=== PATIENT | female | born 1965 | race American Indian/Alaskan Native ===

== ENCOUNTER 2018-06-21 11:02 | Inpatient (IN) | payer SELFPAY ==
[2018-06-21] MEDS ORDERED: MORPHINE IV ONE ×3 (11:43→17:38)
[2018-06-21] MEDS ORDERED: DECADRON IV ONE (11:43)
[2018-06-21] MEDS ORDERED: TORADOL IV ONE (11:43)
[2018-06-21] MEDS ORDERED: ZOFRAN IV ONE (11:43)
--- NOTE | 2018-06-21 11:49 | Emergency Department Report ---
Addendum entered and electronically signed by DEMETRIUS SHIELDS, [facility] 06/21/18 23:32: Consulted Gastroenterology, Dr. Vasquez. Agree with admission for pain control and MRCP in the morning. Addendum entered and electronically signed by DEMETRIUS SHIELDS, [facility] 06/21/18 22:33: Consulted Dr. Swain, agreed to admit to hospitalist group for pain control. Addendum entered and electronically signed by DEMETRIUS SHIELDS, [facility] 06/21/18 20:32: PROCEDURE: CT chest with contrast. TECHNIQUE: Computerized axial tomography of the chest was performed during the IV injection of iodinated nonionic contrast. HISTORY: Chest pain. COMPARISON: No prior studies are available for comparison. TECHNICAL QUALITY: Satisfactory. FINDINGS: The technologist has included images of the abdomen and pelvis. There is a s eparate requisition for those studies. I will limit my review to the images of the chest. The trachea and central bronchi appear normal. The lungs are clear and well expanded. There are no pleural effusions. The thoracic aorta has a normal caliber without evidence of dissection. The bolus enhancement of the pulmonary arteries is less than ideal. There are no definite filling defects identified. There is no mediastinal adenopathy. The heart size is normal. The thoracic skeleton appears intact. IMPRESSION: Suboptimal study of the pulmonary arteries. No definite pulmonary emboli. No significant abnormality. PROCEDURE: CT abdomen and pelvis with contrast. TECHNIQUE: Computerized axial tomography of the abdomen and pelvis was performed after the IV injection of iodinated nonionic contrast. HISTORY: Epigastric abdominal pain. COMPARISON: No prior studies are available for comparison. FINDINGS: The lung bases are clear. There are no pleural effusions. The heart size is no rmal. The liver, pancreas and spleen appear normal. The gallbladder is present. There is moderate intrahepatic and extrahepatic biliary dilatation. There is dilatation of the proximal portion of the pancreatic duct. The findings suggest a distal common bile duct obstruction. There is no pancreatic head mass. An ERCP or MRCP may be of further diagnostic value. The adrenal glands are not enlarged. Both kidneys appear normal in size and configuration. The abdominal aorta has a normal caliber. There is no retroperitoneal adenopathy. The unopacified gastrointestinal tract is unremarkable. A normal appendix is visible. The bladder and adnexal regions are unremarkable. There is probably a large fibroid in the uterus. This is better evaluated by ultrasound scanning. The regional skeleton appears intact. IMPRESSION: Abnormal biliary dilatation as described. Probable large uterine leiomyoma. MDM Received patient from Dr. Chandana V. Pending CT of abdomen and chest. Radiographic dictated by radiologist report reviewed by myself. CT of abdomen abnormal biliary dilation. Consulted Dr. Olivares General Surgery. Order Ultrasound of abdomen. Admit to hospitalist for pain control. Repeat LFT tomorrow and possible MRCP/HIDA scan. Ordered Ultrasound of abdomen. Consulted hospitalist. Original Note: ED Back Pain/Injury HPI - General Chief Complaint: Back Pain/Injury Stated Complaint: LT SIDE PAIN/MID BACK/HANDS Time Seen by Provider: 06/21/18 11:35 Source: patient Limitations: No Limitations - History of Present Illness Initial Comments: Mrs. Hernández is a 53-year-old female with history of lumbar radiculopathy status post laminectomy in 2016 who presents with severe back pain radiating to the left leg. She has chronic pain which is normally controlled with tramadol naproxen gabapentin. However since Wednesday she's had severe pain. She started a new job 8 months ago. She denies any history of heavy lifting. However she stands during the majority of the day while she works. She denies bowel or bladder incontinence. She denies paralysis. She has chronic toe numbness. In 2016 she had emergency back surgery due to cauda equina impression. She is followed at the [facility]. She does not have any health insurance. She and her family were previously homeless. She now lives with her daughter. 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 Complaint: back pain -: Gradual, days(s) (3) Similar Symptoms Previously: Yes Severity: severe Severity scale (0 -10): 10 Quality: aching Consistency: constant Worsens With: movement Associated Symptoms: numbness (chronic toe numbness) - Related Data Previous Rx's Medication Instructions Recorded Last Taken Type Albuterol Sulfate [Ventolin HFA] 2 puff IH Q4H PRN #1 hfa.aer.ad 12/13/13 Unknown Rx Ciprofloxacin HCl [Cipro] 500 mg PO Q12H #14 tab 12/13/13 Unknown Rx Promethazine /Codeine 5 ml PO Q6H PRN #120 ml 12/13/13 Unknown Rx [Phenergan/Codeine 6.25-10 mg/5 ml] Diclofenac Sodium 75 mg PO BID #14 tablet. 07/03/14 Unknown Rx HYDROcodone/APAP 5-325 [[place] 1 each PO Q6HR PRN #15 tablet 07/03/14 Unknown Rx 5-325 mg TAB] LORazepam [Ativan] 0.5 mg PO Q6H PRN #15 tablet 07/03/14 Unknown Rx HYDROcodone/APAP 5-325 [[place] 1 each PO Q4HR PRN #15 tablet 01/04/15 Unknown Rx 5-325 mg TAB] Ibuprofen [Motrin 400 MG tab] 400 mg PO Q8H PRN #30 tablet 01/04/15 Unknown Rx Diazepam [Valium] 5 mg PO Q6H PRN #15 tablet 06/21/18 Unknown Rx oxyCODONE /ACETAMINOPHEN [Percocet 1 tab PO Q6HR PRN #15 tablet 06/21/18 Unknown Rx 5/325] Allergies Allergy/AdvReac Type Severity Reaction Status Date / Time Sulfa (Sulfonamide Allergy Anaphylaxis Verified 06/21/18 11:07 Antibiotics) cyclobenzaprine HCl AdvReac Headache Verified 06/21/18 11:07 [From Flexeril] ED Review of Systems ROS: Stated complaint: LT SIDE PAIN/MID BACK/HANDS Other details as noted in HPI Comment: All other systems reviewed and negative Constitutional: denies: fever, malaise Respiratory: denies: cough Cardiovascular: denies: chest pain ED Past Medical Hx - Past Medical History Hx Hypertension: Yes Additional medical history: Cholelithiasis - Surgical History Additional Surgical History: tubal ligation, lumbar laminectomry. LEFT THUMB SURGERY/TENDON REPAIR - Social History Smoking Status: Never Smoker Substance Use Type: None - Medications Home Medications: Home Medications Medication Instructions Recorded Confirmed Last Taken Type Albuterol Sulfate [Ventolin HFA] 2 puff IH Q4H PRN #1 hfa.aer.ad 12/13/13 Unknown Rx Ciprofloxacin HCl [Cipro] 500 mg PO Q12H #14 tab 12/13/13 Unknown Rx Promethazine /Codeine 5 ml PO Q6H PRN #120 ml 12/13/13 Unknown Rx [Phenergan/Codeine 6.25-10 mg/5 ml] Diclofenac Sodium 75 mg PO BID #14 tablet.dr 07/03/14 Unknown Rx HYDROcodone/APAP 5-325 [[place] 1 each PO Q6HR PRN #15 tablet 07/03/14 Unknown Rx 5-325 mg TAB] LORazepam [Ativan] 0.5 mg PO Q6H PRN #15 tablet 07/03/14 Unknown Rx HYDROcodone/APAP 5-325 [[place] 1 each PO Q4HR PRN #15 tablet 01/04/15 Unknown Rx 5-325 mg TAB] Ibuprofen [Motrin 400 MG tab] 400 mg PO Q8H PRN #30 tablet 01/04/15 Unknown Rx Diazepam [Valium] 5 mg PO Q6H PRN #15 tablet 06/21/18 Unknown Rx oxyCODONE /ACETAMINOPHEN [Percocet 1 tab PO Q6HR PRN #15 tablet 06/21/18 Unknown Rx 5/325] ED Physical Exam - General Limitations: No Limitations General appearance: alert, in no apparent distress, other (nontoxic but appears in severe pain) - Head Head exam: Present: atraumatic, normocephalic - Eye Eye exam: Present: normal appearance - ENT ENT exam: Present: mucous membranes moist - Neck Neck exam: Present: normal inspection, full ROM. Absent: tenderness, meningismus - Respiratory Respiratory exam: Present: normal lung sounds bilaterally. Absent: respiratory distress, wheezes, rales, stridor - Cardiovascular Cardiovascular Exam: Present: regular rate, normal rhythm, normal heart sounds. Absent: systolic murmur, diastolic murmur, rubs, gallop - GI/Abdominal GI/Abdominal exam: Present: soft, normal bowel sounds. Absent: distended, tenderness, guarding, rebound - Extremities Exam Extremities exam: Present: normal inspection, full ROM - Back Exam Back exam: Present: normal inspection, full ROM, muscle spasm. Absent: tenderness, CVA tenderness (R), CVA tenderness (L), paraspinal tenderness, vertebral tenderness - Neurological Exam Neurological exam: Present: alert, oriented X3 - Psychiatric Psychiatric exam: Present: normal affect, normal mood - Skin Skin exam: Present: warm, dry, intact, normal color. Absent: rash ED Course Vital Signs 06/21/18 06/21/18 06/21/18 11:07 12:00 12:04 Temperature 97.7 F Pulse Rate 75 Respiratory 16 19 19 Rate Blood Pressure 166/97 O2 Sat by Pulse 97 Oximetry - Reevaluation(s) Reevaluation #1: 06/21/18 12:50 After medications, back pain improve from to 3 out of 10. However now taiwo montero has burning chest pain and burping. I suspect dyspepsia and indigestion from medications. She does take naproxen daily. Reevaluation #2: 06/21/18 15:39 Reevaluated Ms. Flores, I suspect Toradol cause severe dyspepsia or heartburn. She requires imaging for gallbladder. She has a history of gallstones. I do not suspect [place] or dissection. However will obtain CT chest abdomen pelvis due to severe pain. Heart rate 65 beats a minute during Episode of Severe Pain. Back Pain Is Currently Not a Concern for the Patient ED Medical Decision Making - Lab Data Result diagrams: 06/21/18 13:59 06/21/18 13:59 Laboratory Results - last 24 hr 06/21/18 06/21/18 13:59 13:59 WBC 6.9 RBC 4.89 Hgb 13.3 Hct 41.4 MCV 85 MCH 27 L MCHC 32 RDW 15.0 Plt Count 242 Lymph % (Auto) 39.1 H Esmeralda % (Auto) 2.8 Eos % (Auto) 0.7 Baso % (Auto) 0.3 Lymph # 2.7 Esmeralda # 0.2 Eos # 0.0 Baso # 0.0 Seg Neutrophils % 57.1 Seg Neutrophils # 4.0 Sodium 142 Potassium 4.7 Chloride 104.6 Carbon Dioxide 28 Anion Gap 14 BUN 18 H Creatinine 0.8 Estimated GFR > 60 BUN/Creatinine Ratio 23 Glucose 129 H Calcium 9.4 Total Bilirubin 0.30 AST 48 H ALT 28 Alkaline Phosphatase 73 Troponin T < 0.010 Total Protein 6.9 Albumin 3.6 L Albumin/Globulin Ratio 1.1 Lipase 45 Vital Signs - 24 hr 06/21/18 06/21/18 06/21/18 11:07 12:00 12:04 Temperature 97.7 F Pulse Rate 75 Respiratory 16 19 19 Rate Blood Pressure 166/97 O2 Sat by Pulse 97 Oximetry - EKG Data -: EKG Interpreted by Nd EKG shows normal: sinus rhythm, axis, intervals, QRS complexes, ST-T waves Rate: normal - EKG Data Interpretation: no acute changes, normal EKG - Medical Decision Making Mrs. Hernández has a history of lumbar degenerative disc disease status post laminectomy for cauda equina compression 2015. She has acute on chronic pain today despite home medications tramadol and naproxen gabapentin. No signs or symptoms of cauda equina syndrome. She is neurovascularly intact. She has normal gait. Patient's pain was controlled with medication however she developed severe dyspepsia or heartburn after medication. She required viscous lidocaine, Maalox and IV Pepcid for relief. CT chest abdomen pelvis has been ordered. CT was performed due to patient's request. She was highly concerned for biliary colic. She has a history of cholelithiasis. I do not suspect [place]. I do not suspect acute inflammatory process. I do not suspect pulmonary embolism. Do not suspect esophageal rupture. If CT is negative for acute process as deemed by my colleague, she will be discharged home with prescription for Percocet and Valium. I referred her to several outside clinics. I have signed out Ms. Flores to my colleague for final disposition, awaiting completion of CT. Critical care attestation.: If time is entered above; I have spent that time in minutes in the direct care of this critically ill patient, excluding procedure time. ED Disposition Clinical Impression: Lumbar radiculopathy, chronic, Acute exacerbation of chronic low back pain, Heartburn Disposition: TO HOME OR SELFCARE Is pt being admited?: No Does the pt Need Aspirin: No Condition: Stable Instructions: Lumbar Radiculopathy (ED), Chronic Back Pain (ED) Prescriptions: Diazepam [Valium] 5 mg PO Q6H PRN #15 tablet PRN Reason: Muscle Spasm oxyCODONE /ACETAMINOPHEN [Percocet 5/325] 1 tab PO Q6HR PRN #15 tablet PRN Reason: Pain Referrals: [facility] [Outside] - 3-5 Days [facility] [Outside] - 3-5 Days [facility] [Outside] - 3-5 Days
[2018-06-21] MEDS ORDERED: PEPCID IV ONE (12:49)
[2018-06-21] MEDS ORDERED: ALUM-MAG HYDROX-SIMETH 200-200-20MG/5ML PO ONE (12:49)
[2018-06-21] MEDS ORDERED: LIDOCAINE VISCOUS 2% PO ONE (13:50)
[2018-06-21 14:32] LABS: Basophils % (Auto) 0.3 % (0.0-1.8); Eosinophils % (Auto) 0.7 % (0.0-4.3); Hematocrit 41.4 % (30.3-42.9); Hemoglobin 13.3 gm/dl (10.1-14.3); Lymphocytes # (Auto) 2.7 K/mm3 (1.2-5.4); Lymphocytes % (Auto) 39.1 % (13.4-35.0); Mean Corpuscular HGB Conc 32 % (30-34); Mean Corpuscular Volume 85 fl (79-97); Monocytes # (Auto) 0.2 K/mm3 (0.0-0.8); Monocytes % (Auto) 2.8 % (0.0-7.3); Platelet Count 242 K/mm3 (140-440); Red Blood Count 4.89 M/mm3 (3.65-5.03)
[2018-06-21 14:50] LABS: Alanine Aminotransferase 28 units/L (7-56); Albumin 3.6 g/dL (3.9-5); BUN/Creatinine Ratio 23; Blood Urea Nitrogen 18 mg/dL (7-17); Calcium 9.4 mg/dL (8.4-10.2); Hemolysis Index 8
--- NOTE | 2018-06-21 20:13 | Cat Scan Report ---
FINAL REPORT PROCEDURE: CT chest with contrast. TECHNIQUE: Computerized axial tomography of the chest was performed during the IV injection of iodin ated nonionic contrast. HISTORY: Chest pain. COMPARISON: No prior studies are available for comparison. TECHNICAL QUALITY: Satisfactory. FINDINGS: The technologist has included images of the abdomen and pelvis. There is a separate requisition for t hose studies. I will limit my review to the images of the chest. The trachea and central bronchi appear normal. The lungs are clear and well expanded. There are no pl eural effusions. The thoracic aorta has a normal caliber without evidence of dissection. The bolus en hancement of the pulmonary arteries is less than ideal. There are no definite filling defects identif ied. There is no mediastinal adenopathy. The heart size is normal. The thoracic skeleton appears inta ct. IMPRESSION: Suboptimal study of the pulmonary arteries. No definite pulmonary emboli. No significant abnormality.
--- NOTE | 2018-06-21 20:20 | Cat Scan Report ---
FINAL REPORT PROCEDURE: CT abdomen and pelvis with contrast. TECHNIQUE: Computerized axial tomography of the abdomen and pelvis was performed after the IV inject ion of iodinated nonionic contrast. HISTORY: Epigastric abdominal pain. COMPARISON: No prior studies are available for comparison. FINDINGS: The lung bases are clear. There are no pleural effusions. The heart size is normal. The liver, pancre as and spleen appear normal. The gallbladder is present. There is moderate intrahepatic and extrahepa tic biliary dilatation. There is dilatation of the proximal portion of the pancreatic duct. The findi ngs suggest a distal common bile duct obstruction. There is no pancreatic head mass. An ERCP or MRCP may be of further diagnostic value. The adrenal glands are not enlarged. Both kidneys appear normal i n size and configuration. The abdominal aorta has a normal caliber. There is no retroperitoneal adeno ben. The unopacified gastrointestinal tract is unremarkable. A normal appendix is visible. The blad christiano and adnexal regions are unremarkable. There is probably a large fibroid in the uterus. This is be tter evaluated by ultrasound scanning. The regional skeleton appears intact. IMPRESSION: Abnormal biliary dilatation as described. Probable large uterine leiomyoma.
--- NOTE | 2018-06-21 23:10 | Ultrasound Report ---
FINAL REPORT PROCEDURE: Abdominal ultrasound. TECHNIQUE: Real-time sonography in multiple planes of the abdomen was performed with image documenta [email or web address]. CPT 23145 HISTORY: Abnormal biliary dilatation. COMPARISON: CT abdomen and pelvis done earlier today. FINDINGS: Image quality is limited by the patient's obesity. The pancreas is inadequately visualized. The proxi mal portion of the abdominal aorta has a normal caliber. The liver has uniform echogenicity. There is moderate internal and external biliary dilatation. The common hepatic duct measures 7.3 millimeters. The portal vein is patent by color flow imaging. Both kidneys appear normal in size and have normal echogenicity. The spleen is grossly normal. The gallbladder wall thickness is increased measuring 4 m illimeters. There are numerous shadowing gallstones present. The technologist did not report whether the patient was tender over the gallbladder. IMPRESSION: Limited study due to the patient's obesity. Cholelithiasis. Moderately severe biliary dilatation.
[2018-06-22] MEDS ORDERED: TYLENOL PO PRN ×2 (00:14→02:38)
[2018-06-22] MEDS ORDERED: SODIUM CHLORIDE FLUSH SYRINGE 10 ML IV PRN ×2 (00:14→02:38)
--- NOTE | 2018-06-22 00:14 | History and Physical Report ---
<HECTOR MARCOS - Last Filed: 06/22/18 03:38> History of Present Illness Date of examination: 06/22/18 Date of admission: 06/22/18 Chief complaint: Abdominal pain, lower back pain History of present illness: Pt is 53-year-old BF with PMHx of lower back pain, obesity, chronic pain syndrome, arthritis, prior history of back surgery, who present to the ER with c/o lower back pain (lower lumbar area) radiating to the left leg. Pt states that she had emergent laminectomy in 2016 at [facility] for which she takes Gabapentin, Naproxen and Tramadol. Pt states that she started having back pain since Wednesday, but tonight the pain got worse, she also reports severe heartburn similar to pain that she has before, when she was told she has (gallstones) cholelithiasis. Pt c/o nausea, denies any vomiting, denies any recent injury at work, denies any headache, denies any dizziness, denies LOC, denies fever or chills, denies dysuria, denies CVA tenderness. Pt states that the pain improved after she was giving some morphine in the ER. Pt had a CT scan in the ER which shoes abnormal biliary dilation and probable large uterine leiomyoma. GI was consulted and pt is scheduled for possible MRCI in am. Past History Past Medical History: arthritis, other (obesity) Past Surgical History: Other Social history: no significant social history Family history: no significant family history Medications and Allergies Allergies Allergy/AdvReac Type Severity Reaction Status Date / Time Sulfa (Sulfonamide Allergy Anaphylaxis Verified 06/21/18 11:07 Antibiotics) cyclobenzaprine HCl AdvReac Headache Verified 06/21/18 11:07 [From Flexeril] Home Medications Medication Instructions Recorded Confirmed Last Taken Type Gabapentin [Neurontin] 300 mg PO QAM 06/22/18 06/22/18 Unknown History Gabapentin [Neurontin] 600 mg PO QPM 06/22/18 06/22/18 Unknown History Naproxen [Naprosyn] 500 mg PO BID 06/22/18 06/22/18 Unknown History traMADol [Ultram] 50 mg PO BID 06/22/18 06/22/18 Unknown History Review of Systems Constitutional: chronic pain Gastrointestinal: heartburn Exam - Constitutional Vitals: Temp Pulse Resp BP Pulse Ox 98.0 F 70 16 123/57 95 06/21/18 17:33 06/21/18 17:33 06/21/18 17:46 06/21/18 17:33 06/21/18 17:33 General appearance: Present: no acute distress - EENT Eyes: Present: EOM intact ENT: hearing intact, clear oral mucosa - Neck Neck: Present: supple, normal ROM - Respiratory Respiratory effort: normal Respiratory: bilateral: CTA - Cardiovascular Rhythm: regular - Extremities Extremities: no ischemia Extremity abnormal: edema Peripheral Pulses: within normal limits - Abdominal General gastrointestinal: Present: tender (mild epigastric tenderness) Female genitourinary: Present: deferred - Rectal Rectal Exam: deferred - Integumentary Integumentary: Present: clear, warm - Musculoskeletal Musculoskeletal: strength equal bilaterally - Psychiatric Psychiatric: appropriate mood/affect - Neurologic Neurologic: moves all extremities Results - Labs CBC & Chem 7: 06/21/18 13:59 06/21/18 13:59 Labs: Laboratory Last Values WBC 6.9 K/mm3 (4.5-11.0) 06/21/18 13:59 RBC 4.89 M/mm3 (3.65-5.03) 06/21/18 13:59 Hgb 13.3 gm/dl (10.1-14.3) 06/21/18 13:59 Hct 41.4 % (30.3-42.9) 06/21/18 13:59 MCV 85 fl (79-97) 06/21/18 13:59 MCH 27 pg (28-32) L 06/21/18 13:59 MCHC 32 % (30-34) 06/21/18 13:59 RDW 15.0 % (13.2-15.2) 06/21/18 13:59 Plt Count 242 K/mm3 (140-440) 06/21/18 13:59 Lymph % (Auto) 39.1 % (13.4-35.0) H 06/21/18 13:59 [place] % (Auto) 2.8 % (0.0-7.3) 06/21/18 13:59 Eos % (Auto) 0.7 % (0.0-4.3) 06/21/18 13:59 Baso % (Auto) 0.3 % (0.0-1.8) 06/21/18 13:59 Lymph # 2.7 K/mm3 (1.2-5.4) 06/21/18 13:59 [place] # 0.2 K/mm3 (0.0-0.8) 06/21/18 13:59 Eos # 0.0 K/mm3 (0.0-0.4) 06/21/18 13:59 Baso # 0.0 K/mm3 (0.0-0.1) 06/21/18 13:59 Seg Neutrophils % 57.1 % (40.0-70.0) 06/21/18 13:59 Seg Neutrophils # 4.0 K/mm3 (1.8-7.7) 06/21/18 13:59 Sodium 142 mmol/L (137-145) 06/21/18 13:59 Potassium 4.7 mmol/L (3.6-5.0) 06/21/18 13:59 Chloride 104.6 mmol/L (98-107) 06/21/18 13:59 Carbon Dioxide 28 mmol/L (22-30) 06/21/18 13:59 Anion Gap 14 mmol/L 06/21/18 13:59 BUN 18 mg/dL (7-17) H 06/21/18 13:59 Creatinine 0.8 mg/dL (0.7-1.2) 06/21/18 13:59 Estimated GFR > 60 ml/min 06/21/18 13:59 BUN/Creatinine Ratio 23 % 06/21/18 13:59 Glucose 129 mg/dL (65-100) H 06/21/18 13:59 Calcium 9.4 mg/dL (8.4-10.2) 06/21/18 13:59 Total Bilirubin 0.30 mg/dL (0.1-1.2) 06/21/18 13:59 AST 48 units/L (5-40) H 06/21/18 13:59 ALT 28 units/L (7-56) 06/21/18 13:59 Alkaline Phosphatase 73 units/L (35-129) 06/21/18 13:59 Troponin T < 0.010 ng/mL (0.00-0.029) 06/21/18 13:59 Total Protein 6.9 g/dL (6.3-8.2) 06/21/18 13:59 Albumin 3.6 g/dL (3.9-5) L 06/21/18 13:59 Albumin/Globulin Ratio 1.1 % 06/21/18 13:59 Lipase 45 units/L (13-60) 06/21/18 13:59 Assessment and Plan Assessment and plan: 1. Abnormal biliary dilation 2. Epigastric pain (likely due to above) 3. H/o chronic pain 4. Accelerated Hypertension (improving) 5. Cholelithiasis 6. Chronic back pain Admit to remote medtele Keep NPO post MN for possible MRCP in am IVF for hydration Pain control with IV Morphine Antiemetic with Zofran Resume home meds post surgery Further plan per GI recommendation Plan was d/w pt, voiced understanding Pt's condition and plan of care was d/w Dr Swain Advance Directives: Yes VTE prophylaxis?: Mechanical Plan of care discussed with patient/family: Yes <OLIVIA SWAIN - Last Filed: 06/22/18 05:17> History of Present Illness Date of admission: 06/22/18 02:38 Medications and Allergies Active Meds: Active Medications Acetaminophen (Tylenol) 650 mg PO Q4H PRN PRN Reason: Pain MILD(1-3)/Fever >100.5/OLGUIN Sodium Chloride (Nacl 0.9% 1000 Ml) 1,000 mls @ 75 mls/hr IV DIRECT MITCH Last Admin: 06/22/18 03:39 Dose: 75 mls/hr Documented by: Morphine Sulfate (Morphine) 3 mg IV Q3HR PRN PRN Reason: Pain, Moderate (4-6) Ondansetron HCl (Zofran) 4 mg IV Q8H PRN PRN Reason: Nausea And Vomiting Sodium Chloride (Sodium Chloride Flush Syringe 10 Ml) 10 ml IV BID MITCH Sodium Chloride (Sodium Chloride Flush Syringe 10 Ml) 10 ml IV PRN PRN PRN Reason: LINE FLUSH Sodium Chloride (Sodium Chloride Flush Syringe 10 Ml) 10 ml IV BID MITCH Sodium Chloride (Sodium Chloride Flush Syringe 10 Ml) 10 ml IV PRN PRN PRN Reason: LINE FLUSH Exam - Constitutional Vitals: Temp Pulse Resp BP Pulse Ox 98.1 F 58 L 16 116/63 99 06/22/18 03:39 06/22/18 03:39 06/22/18 03:39 06/22/18 03:39 06/22/18 03:39 Results - Labs CBC & Chem 7: 06/21/18 13:59 06/21/18 13:59 Labs: Laboratory Last Values WBC 6.9 K/mm3 (4.5-11.0) 06/21/18 13:59 RBC 4.89 M/mm3 (3.65-5.03) 06/21/18 13:59 Hgb 13.3 gm/dl (10.1-14.3) 06/21/18 13:59 Hct 41.4 % (30.3-42.9) 06/21/18 13:59 MCV 85 fl (79-97) 06/21/18 13:59 MCH 27 pg (28-32) L 06/21/18 13:59 MCHC 32 % (30-34) 06/21/18 13:59 RDW 15.0 % (13.2-15.2) 06/21/18 13:59 Plt Count 242 K/mm3 (140-440) 06/21/18 13:59 Lymph % (Auto) 39.1 % (13.4-35.0) H 06/21/18 13:59 [place] % (Auto) 2.8 % (0.0-7.3) 06/21/18 13:59 Eos % (Auto) 0.7 % (0.0-4.3) 06/21/18 13:59 Baso % (Auto) 0.3 % (0.0-1.8) 06/21/18 13:59 Lymph # 2.7 K/mm3 (1.2-5.4) 06/21/18 13:59 [place] # 0.2 K/mm3 (0.0-0.8) 06/21/18 13:59 Eos # 0.0 K/mm3 (0.0-0.4) 06/21/18 13:59 Baso # 0.0 K/mm3 (0.0-0.1) 06/21/18 13:59 Seg Neutrophils % 57.1 % (40.0-70.0) 06/21/18 13:59 Seg Neutrophils # 4.0 K/mm3 (1.8-7.7) 06/21/18 13:59 Sodium 142 mmol/L (137-145) 06/21/18 13:59 Potassium 4.7 mmol/L (3.6-5.0) 06/21/18 13:59 Chloride 104.6 mmol/L (98-107) 06/21/18 13:59 Carbon Dioxide 28 mmol/L (22-30) 06/21/18 13:59 Anion Gap 14 mmol/L 06/21/18 13:59 BUN 18 mg/dL (7-17) H 06/21/18 13:59 Creatinine 0.8 mg/dL (0.7-1.2) 06/21/18 13:59 Estimated GFR > 60 ml/min 06/21/18 13:59 BUN/Creatinine Ratio 23 % 06/21/18 13:59 Glucose 129 mg/dL (65-100) H 06/21/18 13:59 Calcium 9.4 mg/dL (8.4-10.2) 06/21/18 13:59 Total Bilirubin 0.30 mg/dL (0.1-1.2) 06/21/18 13:59 AST 48 units/L (5-40) H 06/21/18 13:59 ALT 28 units/L (7-56) 06/21/18 13:59 Alkaline Phosphatase 73 units/L (35-129) 06/21/18 13:59 Troponin T < 0.010 ng/mL (0.00-0.029) 06/21/18 13:59 Total Protein 6.9 g/dL (6.3-8.2) 06/21/18 13:59 Albumin 3.6 g/dL (3.9-5) L 06/21/18 13:59 Albumin/Globulin Ratio 1.1 % 06/21/18 13:59 Lipase 45 units/L (13-60) 06/21/18 13:59 Assessment and Plan Assessment and plan: This is a 53-year-old woman with a history of lumbar radiculopathy was seen in the emergency room for worsening back pain radiating to the left side without any associated symptoms, no bowel or bladder incontinence. Her workup was neg ative and she was given IV.morphine for pain. After pain medication she developed epigastric pain which she describes as sharp pain and also involve her lower abdomen and associated with nausea. A CAT scan of the abdomen and pelvis was done which shows dilated colon bile duct, surgery was consultative to see the patient. Seen and examined with nurse practitioner, agree with GI consult, in addition obtain CT of her LS spine
[2018-06-22] MEDS ORDERED: MORPHINE IV ONE (02:07)
[2018-06-22] MEDS ORDERED: MORPHINE ONE (02:10)
[2018-06-22] MEDS ORDERED: ZOFRAN IV PRN (02:38)
--- NOTE | 2018-06-22 03:13 | Cat Scan Report ---
FINAL REPORT EXAM: CT LUMBAR SPINE WO CON HISTORY: back pain TECHNIQUE: Routine axial imaging was obtained of the lumbar spine without IV contrast with sagittal coronal reconstructions. FINDINGS: There is severe narrowing of the L5-S1 disc with previous central laminectomy at this level. The L4-5 disc is normal height. There is laminectomy at this level also. The upper lumbar discs are normal in height. There is mild canal stenosis at the L2-3 and L3-4 levels . There is multilevel mild facet arthropathy changes throughout the lumbar spine. There is no evidenc e of fracture. The surrounding soft tissues otherwise well maintained IMPRESSION: Previous L4-5 and L5-S1 central laminectomies with moderate to severe disc degeneration at the L5-S1 level. No evidence of acute fracture. Mild canal stenosis at the L3-4 and L2-3 levels. Multilevel facet arthropathy changes throughout the lumbar spine.
[2018-06-22] MEDS: NACL 0.9% 1000 ML 1,000 ML IV SCH ×2 (03:39→17:21)
[2018-06-22] MEDS ORDERED: SODIUM CHLORIDE FLUSH SYRINGE 10 ML IV SCH (10:00)
[2018-06-22] MEDS: MORPHINE IV PRN ×2 (10:36→23:35)
[2018-06-22] MEDS: ZOFRAN IV PRN (10:36)
[2018-06-22] MEDS: SODIUM CHLORIDE FLUSH SYRINGE 10 ML IV SCH ×2 (10:37→21:52)
--- NOTE | 2018-06-22 10:40 | Consultation ---
History of Present Illness Consult date: 06/22/18 Reason for consult: gallstones Chief complaint: abdominal pain, back pain - History of present illness History of present illness: 53 yo F wit hx of lumbar laminectomy, radiculopathy presented to ER with c/o of epigastric, RUQ abd pain x 3 days. This has been intermittent, sharp, nonradiating. It has happened in the past and is exacerbated by fried foods. She was diagnosed with gallstones in 2006 but states surgery was not done at that time. She has had some nausea but no vomiting. No f/c. No CP, SOB. She also c/o lower back pain and n/t of left leg with n/t in feet. She states that these symptoms are intermittent but her medications are not helping as they usually do. Past History Past Medical History: arthritis, other (obesity, lower back pain) Past Surgical History: Other (lumbar laminectomy, left hand surgery) Social history: no significant social history Family history: no significant family history Medications and Allergies Allergies Allergy/AdvReac Type Severity Reaction Status Date / Time Sulfa (Sulfonamide Allergy Anaphylaxis Verified 06/21/18 11:07 Antibiotics) cyclobenzaprine HCl AdvReac Headache Verified 06/21/18 11:07 [From Flexeril] Home Medications Medication Instructions Recorded Confirmed Last Taken Type Gabapentin [Neurontin] 300 mg PO QAM 06/22/18 06/22/18 Unknown History Gabapentin [Neurontin] 600 mg PO QPM 06/22/18 06/22/18 Unknown History Naproxen [Naprosyn] 500 mg PO BID 06/22/18 06/22/18 Unknown History traMADol [Ultram] 50 mg PO BID 06/22/18 06/22/18 Unknown History Active Meds: Active Medications Acetaminophen (Tylenol) 650 mg PO Q4H PRN PRN Reason: Pain MILD(1-3)/Fever >100.5/OLGUIN Sodium Chloride (Nacl 0.9% 1000 Ml) 1,000 mls @ 75 mls/hr IV DIRECT MITCH Last Admin: 06/22/18 03:39 Dose: 75 mls/hr Documented by: Morphine Sulfate (Morphine) 3 mg IV Q3HR PRN PRN Reason: Pain, Moderate (4-6) Last Admin: 06/22/18 10:36 Dose: 3 mg Documented by: Ondansetron HCl (Zofran) 4 mg IV Q8H PRN PRN Reason: Nausea And Vomiting Last Admin: 06/22/18 10:36 Dose: 4 mg Documented by: Sodium Chloride (Sodium Chloride Flush Syringe 10 Ml) 10 ml IV BID MITCH Last Admin: 06/22/18 10:37 Dose: 10 ml Documented by: Sodium Chloride (Sodium Chloride Flush Syringe 10 Ml) 10 ml IV PRN PRN PRN Reason: LINE FLUSH Review of Systems All systems: negative (10 PT ROS performed and negative except for that listed in HPI) Exam Vital Signs Temp Pulse Resp BP Pulse Ox 97.7 F 75 16 166/97 97 06/21/18 11:07 06/21/18 11:07 06/21/18 11:07 06/21/18 11:07 06/21/18 11:07 Narrative exam: Gen: AAOx3. NAD ENT: no scleral icterus or conjunctival pallor CV: S1, s2+ Resp: even and unlabored Abd: soft, obese, ND, mild epigastric and RUQ TTP. no r/r/g Ext; no c/c/e Results - Labs 06/21/18 13:59 06/21/18 13:59 Abnormal lab results 06/21/18 06/21/18 Range/Units 13:59 13:59 MCH 27 L (28-32) pg Lymph % (Auto) 39.1 H (13.4-35.0) % BUN 18 H (7-17) mg/dL Glucose 129 H (65-100) mg/dL AST 48 H (5-40) units/L Albumin 3.6 L (3.9-5) g/dL Diabetes panel 06/21/18 Range/Units 13:59 Sodium 142 (137-145) mmol/L Potassium 4.7 (3.6-5.0) mmol/L Chloride 104.6 (98-107) mmol/L Carbon Dioxide 28 (22-30) mmol/L BUN 18 H (7-17) mg/dL Creatinine 0.8 (0.7-1.2) mg/dL Glucose 129 H (65-100) mg/dL Calcium 9.4 (8.4-10.2) mg/dL AST 48 H (5-40) units/L ALT 28 (7-56) units/L Alkaline Phosphatase 73 (35-129) units/L Total Protein 6.9 (6.3-8.2) g/dL Albumin 3.6 L (3.9-5) g/dL Calcium panel 06/21/18 Range/Units 13:59 Calcium 9.4 (8.4-10.2) mg/dL Albumin 3.6 L (3.9-5) g/dL Pituitary panel 06/21/18 Range/Units 13:59 Sodium 142 (137-145) mmol/L Potassium 4.7 (3.6-5.0) mmol/L Chloride 104.6 (98-107) mmol/L Carbon Dioxide 28 (22-30) mmol/L BUN 18 H (7-17) mg/dL Creatinine 0.8 (0.7-1.2) mg/dL Glucose 129 H (65-100) mg/dL Calcium 9.4 (8.4-10.2) mg/dL Adrenal panel 06/21/18 Range/Units 13:59 Sodium 142 (137-145) mmol/L Potassium 4.7 (3.6-5.0) mmol/L Chloride 104.6 (98-107) mmol/L Carbon Dioxide 28 (22-30) mmol/L BUN 18 H (7-17) mg/dL Creatinine 0.8 (0.7-1.2) mg/dL Glucose 129 H (65-100) mg/dL Calcium 9.4 (8.4-10.2) mg/dL Total Bilirubin 0.30 (0.1-1.2) mg/dL AST 48 H (5-40) units/L ALT 28 (7-56) units/L Alkaline Phosphatase 73 (35-129) units/L Total Protein 6.9 (6.3-8.2) g/dL Albumin 3.6 L (3.9-5) g/dL - Imaging CT scan - abdomen: report reviewed, image reviewed CT scan - pelvis: report reviewed, image reviewed US - abdomen: report reviewed, image reviewed Assessment and Plan 53 yo F with abdominal pain, cholelithiasis, dilated common bile duct 1. NPO 2. IVF 3. prn pain and nausea control 4. MRCP pending 5. GI consult 6. repeat CMP in am 7. w/u of lower back pain exacerbation per hospitalist service. 8. discussed eventual cholecystectomy with patient. will determine timing after w/u is complete Thank you, please call with questions.
--- NOTE | 2018-06-22 10:50 | Gastroenterology Consultation ---
<STACEY BRUCE - Last Filed: 06/22/18 11:44> History of Present Illness - Reason for Consult Consult date: 06/22/18 dilated CBD Requesting physician: DEMETRIUS SHIELDS - History of Present Illness Patient is a 53 y/o female with PMH of chronic pain syndrome/back pain, obesity, arthritis, emergent laminectomy in 2016 at [place], and gallstones who presented to ED with c/o lower back pain radiating to left leg. Upon admission, she was given pain medication (Toradol) which caused her to have severe abdominal (epigastric pain) with burping and nausea. She underwent an abd CT that showed abnormal biliary dilation to which GI has been consulted along with surgery for gallstones. This morning patient was resting in bed w/o acute distress. Reports intermittent abd pain and nausea for the past few years after being diagnosed with gallstones with symptoms worsened by eating fatty foods (fried chicken). Denies fever, CP, SOB, wt loss, vomiting, signs of bleeding, or LGI symptoms. No prior PUD. No hx or Fhx of liver disease. No alcohol or illicit drug use. Takes Naproxen at home. Past History Past Medical History: other (as per HPI) Past Surgical History: Other (laminectomy in 2016) Social history: no significant social history Family history: no significant family history Medications and Allergies Allergies Allergy/AdvReac Type Severity Reaction Status Date / Time Sulfa (Sulfonamide Allergy Anaphylaxis Verified 06/21/18 11:07 Antibiotics) cyclobenzaprine HCl AdvReac Headache Verified 06/21/18 11:07 [From Flexeril] Home Medications Medication Instructions Recorded Confirmed Last Taken Type Gabapentin [Neurontin] 300 mg PO QAM 06/22/18 06/22/18 Unknown History Gabapentin [Neurontin] 600 mg PO QPM 06/22/18 06/22/18 Unknown History Naproxen [Naprosyn] 500 mg PO BID 06/22/18 06/22/18 Unknown History traMADol [Ultram] 50 mg PO BID 06/22/18 06/22/18 Unknown History Active Meds: Active Medications Acetaminophen (Tylenol) 650 mg PO Q4H PRN PRN Reason: Pain MILD(1-3)/Fever >100.5/OLGUIN Sodium Chloride (Nacl 0.9% 1000 Ml) 1,000 mls @ 75 mls/hr IV DIRECT MITCH Last Admin: 06/22/18 03:39 Dose: 75 mls/hr Documented by: Morphine Sulfate (Morphine) 3 mg IV Q3HR PRN PRN Reason: Pain, Moderate (4-6) Last Admin: 06/22/18 10:36 Dose: 3 mg Documented by: Ondansetron HCl (Zofran) 4 mg IV Q8H PRN PRN Reason: Nausea And Vomiting Last Admin: 06/22/18 10:36 Dose: 4 mg Documented by: Sodium Chloride (Sodium Chloride Flush Syringe 10 Ml) 10 ml IV BID IMTCH Last Admin: 06/22/18 10:37 Dose: 10 ml Documented by: Sodium Chloride (Sodium Chloride Flush Syringe 10 Ml) 10 ml IV PRN PRN PRN Reason: LINE FLUSH medications reviewed/updated as required Review of Systems - Review of Systems All systems: negative Gastrointestinal: abdominal pain, nausea Musculoskeletal: other (back pain) Exam - Constitutional Vital Signs: Temp Pulse Resp BP Pulse Ox 97.4 F L 64 16 118/68 96 06/22/18 08:34 06/22/18 08:34 06/22/18 08:34 06/22/18 08:34 06/22/18 08:34 General appearance: no acute distress, obese - Respiratory Respiratory: bilateral: CTA - Cardiovascular Rhythm: regular Heart Sounds: Present: S1 & S2 - Gastrointestinal General gastrointestinal: Present: soft, tender (mild TTP in epigastric area), non-distended, normal bowel sounds - Neurologic Neurological: alert and oriented x3 - Labs CBC & Chem 7: 06/21/18 13:59 06/21/18 13:59 Lab Results: Laboratory Results - last 24 hr 06/21/18 06/21/18 13:59 13:59 WBC 6.9 RBC 4.89 Hgb 13.3 Hct 41.4 MCV 85 MCH 27 L MCHC 32 RDW 15.0 Plt Count 242 Lymph % (Auto) 39.1 H [place] % (Auto) 2.8 Eos % (Auto) 0.7 Baso % (Auto) 0.3 Lymph # 2.7 [place] # 0.2 Eos # 0.0 Baso # 0.0 Seg Neutrophils % 57.1 Seg Neutrophils # 4.0 Sodium 142 Potassium 4.7 Chloride 104.6 Carbon Dioxide 28 Anion Gap 14 BUN 18 H Creatinine 0.8 Estimated GFR > 60 BUN/Creatinine Ratio 23 Glucose 129 H Calcium 9.4 Total Bilirubin 0.30 AST 48 H ALT 28 Alkaline Phosphatase 73 Troponin T < 0.010 Total Protein 6.9 Albumin 3.6 L Albumin/Globulin Ratio 1.1 Lipase 45 Assessment and Plan 1.dilated CBD 2.abdominal pain (epigastric) 3.cholelithiasis -afebrile -WBC WNL -LFTs- T.yanira 0.30, AST 48, ALT 28, Alk phos 73 -lipase WNL -abd CT showed moderate intrahepatic/extraheptic biliary dilatation and dilatation of the proximal portion of the pancreatic duct -surgery following -MRCP pending for today for further evaluation -start on PPI -continue to trend labs and supportive care -further recommendations to follow pending above results <RAMA MAYEN - Last Filed: 06/22/18 19:31> Medications and Allergies Active Meds: Active Medications Acetaminophen (Tylenol) 650 mg PO Q4H PRN PRN Reason: Pain MILD(1-3)/Fever >100.5/OLGUIN Sodium Chloride (Nacl 0.9% 1000 Ml) 1,000 mls @ 75 mls/hr IV DIRECT [facility] Last Admin: 06/22/18 17:21 Dose: 75 mls/hr Documented by: Morphine Sulfate (Morphine) 3 mg IV Q3HR PRN PRN Reason: Pain, Moderate (4-6) Last Admin: 06/22/18 10:36 Dose: 3 mg Documented by: Ondansetron HCl (Zofran) 4 mg IV Q8H PRN PRN Reason: Nausea And Vomiting Last Admin: 06/22/18 10:36 Dose: 4 mg Documented by: Pantoprazole Sodium (Protonix) 40 mg IV QDAY [facility] Last Admin: 06/22/18 12:45 Dose: 40 mg Documented by: Sodium Chloride (Sodium Chloride Flush Syringe 10 Ml) 10 ml IV BID [facility] Last Admin: 06/22/18 10:37 Dose: 10 ml Documented by: Sodium Chloride (Sodium Chloride Flush Syringe 10 Ml) 10 ml IV PRN PRN PRN Reason: LINE FLUSH Exam - Constitutional Vital Signs: Temp Pulse Resp BP Pulse Ox 97.3 F L 58 L 16 116/70 96 06/22/18 16:32 06/22/18 16:32 06/22/18 16:32 06/22/18 16:32 06/22/18 16:32 - Labs CBC & Chem 7: 06/21/18 13:59 06/21/18 13:59 Assessment and Plan Pt seen and examined. Agree with note above. MRCP without filling defects/obstructive signs although shows tapering in distal cbd and PD dilatation of unclear significance. No need for ERCP at this time; would recomm end IOC at time of CCY per surgery; consider EUS as outpatient if IOC negative vs surveillance imaging.
[2018-06-22] MEDS: PROTONIX IV SCH (12:45)
--- NOTE | 2018-06-22 14:03 | Magnetic Resonance Report ---
MR ABDOMEN MRCP History: Possible distal common bile duct obstruction, abdominal pain. Technique: Multisequence, multiplanar MRI without contrast. Thin and thick slab MRCP images. Radial MRCP images. Findings: Recent ultrasound abdomen and CT abdomen pelvis with contrast performed 06/21/18 were reviewed. MRCP also demonstrates a dilated common bile duct measuring up to 1.1 cm in diameter. The pancreatic duct is also dilated measuring 6 mm in diameter. There is minimal intrahepatic biliary dilatation near the liver hilum. The gallbladder is contracted and contains multiple stones measuring up to 1 cm. There is no obvious filling defect in the common bile duct consistent with choledocholithiasis. There is smooth tapering of the distal common bile duct near the ampulla. Signal characteristics of the liver, pancreas, spleen, kidneys, adrenal glands and visualized bowel loops are unremarkable. The aorta is normal caliber. No evidence for adenopathy, ascites or inflammatory changes. Impression: The gallbladder is contracted and contains multiple stones. There is mild diffuse dilatation of the biliary tree and the pancreatic duct as outlined above. No choledocholithiasis is identified on MRCP. This could represent a benign stricture in the distal common bile duct. Sphincter of Oddi dysfunction could also be considered. No ampullary mass is suggested.
--- NOTE | 2018-06-22 15:13 | Event Note ---
Date: 06/22/18 Patient seen and examined, in no acute distress. still with some abdominal pain. Continue current treatment plan.
[2018-06-23 06:18] LABS: Basophils % (Auto) 0.6 % (0.0-1.8); Eosinophils % (Auto) 0.5 % (0.0-4.3); Hematocrit 37.3 % (30.3-42.9); Hemoglobin 12.2 gm/dl (10.1-14.3); Lymphocytes # (Auto) 2.1 K/mm3 (1.2-5.4); Lymphocytes % (Auto) 45.1 % (13.4-35.0); Mean Corpuscular HGB Conc 33 % (30-34); Mean Corpuscular Volume 84 fl (79-97); Monocytes # (Auto) 0.3 K/mm3 (0.0-0.8); Monocytes % (Auto) 6.1 % (0.0-7.3); Platelet Count 222 K/mm3 (140-440); Red Blood Count 4.44 M/mm3 (3.65-5.03); Red Cell Distribution Width 15.3 % (13.2-15.2)
[2018-06-23 06:34] LABS: Alanine Aminotransferase 25 units/L (7-56); Albumin 3.7 g/dL (3.9-5); BUN/Creatinine Ratio 23; Blood Urea Nitrogen 16 mg/dL (7-17); Calcium 9.1 mg/dL (8.4-10.2); Hemolysis Index 18
[2018-06-23] MEDS: NACL 0.9% 1000 ML 1,000 ML IV SCH (09:45)
--- NOTE | 2018-06-23 10:09 | Progress Note ---
Assessment and Plan 53 yo F with symptomatic cholelithiasis, likely chronic cholecystitis, dilated CBD 1. MRCP negative for choledocolithiasis and LFTs WNL today 2. Patient still have RUQ abd pain today - recommend cholecystectomy 3. c/w NPO 4. IVF 5. prn pain and nausea control 6. Lap cholecystectomy with IOC today - I discussed all risks, benefits, and a lternatives to surgery with the patient and questions answered. Consent obtained. D/W Dr. Alanis Subjective Date of service: 06/23/18 Narrative: Pt seen and examined. Still c/o epigastric and RUQ abd pain, belching, reflux symptoms. She has not had n/v, f/c. She is hungry. Objective Vital Signs - 12hr 06/22/18 06/23/18 06/23/18 23:35 00:01 00:05 Temperature 98.1 F Pulse Rate 63 Respiratory 18 18 17 Rate Blood Pressure 106/73 O2 Sat by Pulse 100 Oximetry 06/23/18 06/23/18 06/23/18 05:28 08:41 09:20 Temperature 98.5 F 97.7 F 98.2 F Pulse Rate 52 L 58 L 65 Respiratory 18 16 16 Rate Blood Pressure 126/56 147/64 166/77 O2 Sat by Pulse 98 98 98 Oximetry - General physical appearance Narrative Exam: Gen: AAOx3. NAD CV: S1, S2+ Resp: even and unlabored Abd: soft, ND, obese, + RUQ TTP. no r/r/g Ext: no c/c/e - Labs 06/23/18 05:49 06/23/18 05:49 Diabetes panel 06/23/18 Range/Units 05:49 Sodium 144 (137-145) mmol/L Potassium 4.1 (3.6-5.0) mmol/L Chloride 106.9 (98-107) mmol/L Carbon Dioxide 26 (22-30) mmol/L BUN 16 (7-17) mg/dL Creatinine 0.7 (0.7-1.2) mg/dL Glucose 81 (65-100) mg/dL Calcium 9.1 (8.4-10.2) mg/dL AST 15 (5-40) units/L ALT 25 (7-56) units/L Alkaline Phosphatase 62 (35-129) units/L Total Protein 6.5 (6.3-8.2) g/dL Albumin 3.7 L (3.9-5) g/dL Calcium panel 06/23/18 Range/Units 05:49 Calcium 9.1 (8.4-10.2) mg/dL Albumin 3.7 L (3.9-5) g/dL Pituitary panel 06/23/18 Range/Units 05:49 Sodium 144 (137-145) mmol/L Potassium 4.1 (3.6-5.0) mmol/L Chloride 106.9 (98-107) mmol/L Carbon Dioxide 26 (22-30) mmol/L BUN 16 (7-17) mg/dL Creatinine 0.7 (0.7-1.2) mg/dL Glucose 81 (65-100) mg/dL Calcium 9.1 (8.4-10.2) mg/dL Adrenal panel 06/23/18 Range/Units 05:49 Sodium 144 (137-145) mmol/L Potassium 4.1 (3.6-5.0) mmol/L Chloride 106.9 (98-107) mmol/L Carbon Dioxide 26 (22-30) mmol/L BUN 16 (7-17) mg/dL Creatinine 0.7 (0.7-1.2) mg/dL Glucose 81 (65-100) mg/dL Calcium 9.1 (8.4-10.2) mg/dL Total Bilirubin 0.50 (0.1-1.2) mg/dL AST 15 (5-40) units/L ALT 25 (7-56) units/L Alkaline Phosphatase 62 (35-129) units/L Total Protein 6.5 (6.3-8.2) g/dL Albumin 3.7 L (3.9-5) g/dL
[2018-06-23] MEDS ORDERED: PEPCID IV NR (10:14)
[2018-06-23] MEDS ORDERED: VERSED IV NR (10:19)
[2018-06-23] MEDS ORDERED: ANCEF/STERILE WATER 2 GM/20 ML 2 GM/20 ML SYRINGE IV NR (11:00)
--- NOTE | 2018-06-23 11:35 | Anesthesia Consultation ---
Anesthesia Consult and Med Hx Date of service: 06/23/18 - Airway Anesthetic Teeth Evaluation: Good ROM Head & Neck: Adequate Mental/Hyoid Distance: Adequate Mallampati Class: Class III Intubation Access Assessment: Possibly Difficult - Pulmonary Exam CTA: Yes - Cardiac Exam Cardiac Exam: RRR - Pre-Operative Health Status ASA Pre-Surgery Classification: ASA3 Proposed Anesthetic Plan: General - Pulmonary Hx Smoking: No Hx Asthma: No Hx Respiratory Symptoms: No - Cardiovascular System Hx Hypertension: Yes Hx Heart Attack/AMI: No Hx Percutaneous Transluminal Coronary Angioplasty (PTCA): No - Central Nervous System Hx Seizures: No CVA: No Hx Back Pain: Yes (s/p lumbar laminectomy ) - Gastrointestinal Hx Gastroesophageal Reflux Disease: Yes - Endocrine Hx Renal Disease: No Hx Liver Disease: No Hx Insulin Dependent Diabetes: No Hx Non-Insulin Dependent Diabetes: No Hx Thyroid Disease: No - Other Systems Hx Obesity: Yes - Additional Comments Anesthesia Medical History Comments: No nausea or vomiting today. No hx anesthetic complications.
--- NOTE | 2018-06-23 11:36 | Anesthesia Day of Surgery ---
Anesthesia Day of Surgery - Day of Surgery Patient Examined: Yes Patient H&P Reviewed: Yes Patient is NPO: Yes
[2018-06-23] MEDS ORDERED: MARCAINE 0.5% INFILTRATI ONE ×2 (11:38→12:09)
[2018-06-23] MEDS ORDERED: XYLOCAINE 1% 20 mL ONE (11:39)
[2018-06-23] MEDS ORDERED: MARCAINE-EPI 0.5%-1:200,000 INFILTRATI ONE (11:42)
[2018-06-23] MEDS ORDERED: XYLOCAINE MPF 2% ONE (11:47)
[2018-06-23] MEDS ORDERED: ZOFRAN ONE (11:47)
[2018-06-23] MEDS ORDERED: DIPRIVAN 10 MG/ML IV ONE (11:47)
[2018-06-23] MEDS ORDERED: DECADRON ONE (11:47)
[2018-06-23] MEDS ORDERED: SUBLIMAZE ONE (11:47)
[2018-06-23] MEDS ORDERED: ZEMURON IV ONE (11:47)
[2018-06-23] MEDS ORDERED: XYLOCAINE 1% 20 mL INFILTRATI ONE (12:09)
--- NOTE | 2018-06-23 12:43 | Event Note ---
Date: 06/23/18 MRCP without filling defects/obstructive signs although shows tapering in distal cbd and PD dilatation of unclear significance. Patient scheduled for lap cholecystectomy today with IOC. Further recommendations to follow pending results of IOC (if negative, consider EUS vs surveillance imaging).
[2018-06-23] MEDS ORDERED: NACL P/F VIAL (10 ML) 10 ML ONE (12:45)
--- NOTE | 2018-06-23 13:24 | Fluoroscopy Report ---
FLUOROSCOPY CHOLANGIOGRAM OPERATIVE History: Chronic cholecystitis. Findings: Fluoroscopy was provided by radiology during intraoperative cholangiogram. A single fluoroscopic image of the right upper quadrant was saved demonstrating contrast agent in the biliary tree and proximal duodenum. Cholecystectomy has been performed. No biliary leak is appreciated. No obvious filling defect in the common bile duct. Impression: No evidence for biliary leak or obstruction.
--- NOTE | 2018-06-23 13:33 | Post Operative Note ---
Date of procedure: 06/23/18 Pre-op diagnosis: chronic cholecystitis, dilated CBD Post-op diagnosis: same Findings: Contracted gallbladder with stones. Adhesions to the omentum. Thickened gallbladder wall. Cholangiogram - sludge, no filling defect, dilated CBD with normal tapering. Goo d filling of hepatic ducts. Duodenum fills with contrast but some resistance when pushing contrast. Procedure: Laparoscopic cholecystectomy with intraoperative cholangiogram Anesthesia: GETA, local Surgeon: JUNIOR VASQUES Estimated blood loss: minimal Pathology: list (gallbladder) Specimen disposition: to lab Condition: stable Disposition: PACU
[2018-06-23] MEDS: DILAUDID IV PRN ×3 (13:47→18:06)
--- NOTE | 2018-06-23 14:42 | Post Anesthesia Evaluation ---
- Post Anesthesia Evaluation Patient Participated: Yes Airway Patent: Yes Stable Respiratory Function: Yes Nausea/Vomiting: No Temp > 96.8F: Yes Pain Manageable: Yes Adequeate Hydration: Yes Anesthesia Complications: No
--- NOTE | 2018-06-23 14:59 | Event Note ---
Date: 06/23/18 Patient s/p cholecystectomy today. Cholangiogram showed sludge, dilated CBD with normal tapering, good filling of hepatic ducts, and duodenum fills with contrast but with resistence when pushing contrast. Will schedule for ERCP tomorrow.
--- NOTE | 2018-06-23 15:07 | Operative Report ---
PREOPERATIVE DIAGNOSES: Chronic cholecystitis, dilated common bile duct. POSTOPERATIVE DIAGNOSES: Chronic cholecystitis, dilated common bile duct. FINDINGS: Contracted gallbladder with stones. Adhesions of the omentum. Thickened gallbladder wall. Sludge coming from the common bile duct through the cystic duct upon creation of cystotomy. Cholangiogram showed no filling defect in the common bile duct, however, it was dilated with tapering at the ampulla. There was good filling of the hepatic ducts and the duodenum. The duodenum did fill; however, there was some resistance when pushing the contrast. PROCEDURE: Laparoscopic cholecystectomy with intraoperative cholangiogram. ANESTHESIA: General endotracheal anesthesia, local. SURGEON: Leeann Toth DO. ESTIMATED BLOOD LOSS: Minimal. PATHOLOGY: Gallbladder specimen to lab. CONDITION: Stable. DISPOSITION OF PATIENT: To PACU. HISTORY OF PRESENT ILLNESS AND INDICATION: The patient is a 53-year-old female who presented to the hospital with complaints of abdominal pain. Workup revealed gallstones with thickened gallbladder wall and dilated hepatic common bile duct and pancreatic duct. An MRCP was negative for choledocholithiasis. The patient's pain persisted despite starting her on a PPI. Therefore, it was decided to take her to the operating room. All risks, benefits, alternatives of surgery were discussed with the patient, consent obtained. All questions were answered. DESCRIPTION OF PROCEDURE: The patient was identified in the preoperative area, taken back to the operating room, and placed on the operating table in supine position. After anesthesia was induced, the abdomen was prepped and draped in the usual sterile fashion. A timeout was performed. Local anesthetic was infiltrated into all skin incision sites. A 5 mm incision was made right above the umbilicus through which a Veress needle was inserted. Unfortunately, the Veress needle was not long enough to traverse both fascial layers and therefore, the decision was made to try inserting the needle through a stab incision in the left upper quadrant at Wray's point. Unfortunately, we had the same problem here and therefore, the decision was made to go through the umbilicus. The Veress needle was inserted through the umbilicus and positioning confirmed using the saline drop test. The abdomen was then insufflated to 15 mmHg. Through the supraumbilical 5-mm incision, a 5 mm Optiview trocar was placed under direct visualization. The abdomen was inspected along with the Veress needle tract and there was no underlying injury to any of the abdominal structures. The Veress needle was removed. The patient was placed in reverse Trendelenburg and tilted to the left. A 12 mm subxiphoid and two 5 mm right upper quadrant ports were placed, all under direct visualization. The gallbladder was visualized and the fundus grasped and lifted cephalad. There were adhesions from the omentum to the gallbladder fundus. These were taken down bluntly. These were taken down using a combination of blunt dissection as well as a hook electrocautery. The gallbladder neck was identified and there were also some adhesions here as well as fat. The adhesions and fat were taken down using [place] dissector until the cystic duct and cystic artery were identified. These were skeletonized and seen as the only 2 structures entering the gallbladder. The critical view was obtained. Findings were that it still did have large stones and a thickened gallbladder wall. The gallbladder was contracted. The cystic artery was clipped with 2 clips proximally and 1 clip distally and transected in between the clips using EndoShears. Two clips were placed on the distal aspect of the cystic duct right where it entered the gallbladder and a cystotomy was created using the EndoShears. There was immediate drainage of sludge-like bile from the cystic duct. A cholangiogram catheter was then introduced through the 12 mm port and placed into the cystic duct going towards the common bile duct. This was inserted smoothly without resistance and it was then clamped with an [facility] clamp. Injectable saline was injected through the catheter and there was no leakage seen. At this point, we turned our attention to performing the cholangiogram. The Omnipaque was injected through the catheter and the cholangiogram performed in the usual fashion. There was immediate filling of the cystic duct and common bile duct. The common bile duct did appear dilated; however, tapered normally. There was filling of the biliary tree in the liver. The duodenum did fill; however, I did feel there was resistance when pushing the contrast. There were no filling defects seen in the common bile duct. There was no filling defect seen in the hepatic ducts. The cholangiogram was then complete and the cholangiogram catheter was removed. Three clips were placed on the proximal aspect of the cystic duct and a Vicryl Endoloop was placed below these clips. The gallbladder was then taken off the liver bed using hook electrocautery and placed into an EndoCatch bag. The liver bed and gallbladder fossa were then irrigated with saline and clips were visualized. The clips did appear intact. There was no active bleeding from the liver bed. There was no active bile leakage from the liver bed. The patient was then flattened and placed into neutral position. Her Gallardo's pouch was irrigated until the irrigant returned clear. The gallbladder was then removed via the 12 mm subxiphoid port. The 12 mm port fascia was closed with an interrupted 0 Vicryl suture using the Geronimo-Treva device. All ports were removed under direct visualization and the skin incisions were closed with 4-0 Monocryl subcuticular stitches and skin glue. Local anesthetic was once again infiltrated into all skin incision sites. At the end of the case, all sponge, instrument and sharp counts were correct x 2. The patient was awoken from anesthesia, extubated, and taken to PACU in stable condition. JOB# [id number] ROIME/CARMEL DIALLO
[2018-06-23] MEDS: PROTONIX IV SCH (15:36)
[2018-06-23] MEDS: SODIUM CHLORIDE FLUSH SYRINGE 10 ML IV SCH ×2 (17:07→21:17)
--- NOTE | 2018-06-23 17:28 | Progress Note ---
Assessment and Plan Assessment and plan: This is a 53-year-old woman with a history of lumbar radiculopathy was seen in the emergency room for worsening back pain radiating to the left side without any associated symptoms, no bowel or bladder incontinence. Her workup was negative and she was given IV.morphine for pain. After pain medication she developed epigastric pain which she describes as sharp pain and also involve her lower abdomen and associated with nausea. A CAT scan of the abdomen and pelvis was done which shows dilated colon bile duct, surgery was consultative to see the patient. 1. Abnormal biliary dilation 2. Epigastric pain secondary to cholelithiasis 3. H/o chronic pain 4. Accelerated Hypertension (improving) 5. Cholelithiasis 6. Chronic back pain 7. Morbid Obesity PLan Supportive care Cholecystectomy today GI and surgical input note IVF for hydration Pain control with IV Morphine Counselling for weightloss provided Antiemetic with Zofran Resume home meds post surgery Plan was d/w pt, voiced understanding DVT/GI prophy Plan discussed with surgery History Interval history: Patient seen and examined today, for surgery today. Hospitalist Physical - Physical exam Narrative exam: General appearance: Present: no acute distress, morbidly obese - EENT Eyes: Present: EOM intact ENT: hearing intact, clear oral mucosa - Neck Neck: Present: supple, normal ROM - Respiratory Respiratory effort: normal Respiratory: bilateral: CTA - Cardiovascular Rhythm: regular - Extremities Extremities: no ischemia Extremity abnormal: edema Peripheral Pulses: within normal limits - Abdominal General gastrointestinal: Present: tender (mild epigastric tenderness) Female genitourinary: Present: deferred - Rectal Rectal Exam: deferred - Integumentary Integumentary: Present: clear, warm - Musculoskeletal Musculoskeletal: strength equal bilaterally - Psychiatric Psychiatric: appropriate mood/affect - Neurologic Neurologic: moves all extremities - Constitutional Vitals: Temp Pulse Resp BP Pulse Ox 97.2 F L 62 14 142/67 100 06/23/18 13:20 06/23/18 14:16 06/23/18 14:30 06/23/18 14:16 06/23/18 14:16 General appearance: Present: no acute distress Results - Labs CBC & Chem 7: 06/23/18 05:49 06/23/18 05:49 Labs: Laboratory Last Values WBC 4.5 K/mm3 (4.5-11.0) 06/23/18 05:49 RBC 4.44 M/mm3 (3.65-5.03) 06/23/18 05:49 Hgb 12.2 gm/dl (10.1-14.3) 06/23/18 05:49 Hct 37.3 % (30.3-42.9) 06/23/18 05:49 MCV 84 fl (79-97) 06/23/18 05:49 MCH 28 pg (28-32) 06/23/18 05:49 MCHC 33 % (30-34) 06/23/18 05:49 RDW 15.3 % (13.2-15.2) H 06/23/18 05:49 Plt Count 222 K/mm3 (140-440) 06/23/18 05:49 Lymph % (Auto) 45.1 % (13.4-35.0) H 06/23/18 05:49 [place] % (Auto) 6.1 % (0.0-7.3) 06/23/18 05:49 Eos % (Auto) 0.5 % (0.0-4.3) 06/23/18 05:49 Baso % (Auto) 0.6 % (0.0-1.8) 06/23/18 05:49 Lymph # 2.1 K/mm3 (1.2-5.4) 06/23/18 05:49 [place] # 0.3 K/mm3 (0.0-0.8) 06/23/18 05:49 Eos # 0.0 K/mm3 (0.0-0.4) 06/23/18 05:49 Baso # 0.0 K/mm3 (0.0-0.1) 06/23/18 05:49 Seg Neutrophils % 47.7 % (40.0-70.0) 06/23/18 05:49 Seg Neutrophils # 2.2 K/mm3 (1.8-7.7) 06/23/18 05:49 Sodium 144 mmol/L (137-145) 06/23/18 05:49 Potassium 4.1 mmol/L (3.6-5.0) 06/23/18 05:49 Chloride 106.9 mmol/L (98-107) 06/23/18 05:49 Carbon Dioxide 26 mmol/L (22-30) 06/23/18 05:49 Anion Gap 15 mmol/L 06/23/18 05:49 BUN 16 mg/dL (7-17) 06/23/18 05:49 Creatinine 0.7 mg/dL (0.7-1.2) 06/23/18 05:49 Estimated GFR > 60 ml/min 06/23/18 05:49 BUN/Creatinine Ratio 23 % 06/23/18 05:49 Glucose 81 mg/dL (65-100) 06/23/18 05:49 Calcium 9.1 mg/dL (8.4-10.2) 06/23/18 05:49 Total Bilirubin 0.50 mg/dL (0.1-1.2) 06/23/18 05:49 AST 15 units/L (5-40) 06/23/18 05:49 ALT 25 units/L (7-56) 06/23/18 05:49 Alkaline Phosphatase 62 units/L (35-129) 06/23/18 05:49 Troponin T < 0.010 ng/mL (0.00-0.029) 06/21/18 13:59 Total Protein 6.5 g/dL (6.3-8.2) 06/23/18 05:49 Albumin 3.7 g/dL (3.9-5) L 06/23/18 05:49 Albumin/Globulin Ratio 1.3 % 06/23/18 05:49 Lipase 45 units/L (13-60) 06/21/18 13:59
[2018-06-23] MEDS: MORPHINE IV PRN (21:13)
[2018-06-24] MEDS: PERCOCET 5/325 PO PRN (00:35)
[2018-06-24 04:58] LABS: Basophils % (Auto) 0.6 % (0.0-1.8); Eosinophils % (Auto) 0.2 % (0.0-4.3); Hematocrit 37.8 % (30.3-42.9); Hemoglobin 12.2 gm/dl (10.1-14.3); Lymphocytes # (Auto) 1.8 K/mm3 (1.2-5.4); Lymphocytes % (Auto) 27.6 % (13.4-35.0); Mean Corpuscular HGB Conc 32 % (30-34); Mean Corpuscular Volume 83 fl (79-97); Monocytes # (Auto) 0.5 K/mm3 (0.0-0.8); Monocytes % (Auto) 6.9 % (0.0-7.3); Platelet Count 245 K/mm3 (140-440); Red Blood Count 4.56 M/mm3 (3.65-5.03)
[2018-06-24 05:09] LABS: INR 1.1 (0.87-1.13)
[2018-06-24 05:23] LABS: Alanine Aminotransferase 88 units/L (7-56); Albumin 3.5 g/dL (3.9-5); BUN/Creatinine Ratio 17; Blood Urea Nitrogen 10 mg/dL (7-17); Hemolysis Index 3
[2018-06-24] MEDS: MORPHINE IV PRN ×2 (06:58→16:06)
[2018-06-24] MEDS: PROTONIX IV SCH (09:26)
[2018-06-24] MEDS: SODIUM CHLORIDE FLUSH SYRINGE 10 ML IV SCH (09:27)
--- NOTE | 2018-06-24 10:52 | Progress Note ---
Assessment and Plan 53 yo F s/p laparoscopic cholecystectomy with IOC, POD 1 Plan: 1. NPO for ERCP today, may start diet after 2. IVF 3. prn pain and nausea control 4. OOB-> ambulate 5. DVT PPX 6. IS/pulm toilet 7. ok to dc home when ok with GI. cleared from surgery standpoint. Pt to follow up in surgery office in 2 wks. Paper discharge instructions left in chart. Thank you, please call with questions. Subjective Date of service: 06/24/18 Narrative: Pt seen and examined. c/o RUQ abdominal pain and soreness at incisions. No f/c. No CP, SOB. Tolerated reg diet last night. Objective Vital Signs - 12hr 06/24/18 06/24/18 06/24/18 00:14 00:35 01:35 Temperature 98.3 F Pulse Rate 56 L Respiratory 18 18 17 Rate Blood Pressure 118/56 O2 Sat by Pulse 100 Oximetry 06/24/18 06/24/18 06/24/18 04:19 06:58 07:26 Temperature 98.4 F 98.4 F Pulse Rate 66 73 Respiratory 18 17 20 Rate Blood Pressure 142/59 153/68 O2 Sat by Pulse 98 95 Oximetry - General physical appearance Narrative Exam: Gen: AAOx3. NAD ENT: no scleral icterus or conjunctival pallor CV: s1, S2+ resp: even and unlabored Abd: soft, ND, + incisional TTP and mild RUQ TTP. no r/r/g. Incisions c/d/i Ext: no c/c/e - Labs 06/24/18 04:44 06/24/18 04:44 Diabetes panel 06/24/18 Range/Units 04:44 Sodium 141 (137-145) mmol/L Potassium 4.0 (3.6-5.0) mmol/L Chloride 104.6 (98-107) mmol/L Carbon Dioxide 25 (22-30) mmol/L BUN 10 (7-17) mg/dL Creatinine 0.6 L (0.7-1.2) mg/dL Glucose 88 (65-100) mg/dL Calcium 9.0 (8.4-10.2) mg/dL AST 79 H (5-40) units/L ALT 88 H (7-56) units/L Alkaline Phosphatase 76 (35-129) units/L Total Protein 6.5 (6.3-8.2) g/dL Albumin 3.5 L (3.9-5) g/dL Calcium panel 06/24/18 Range/Units 04:44 Calcium 9.0 (8.4-10.2) mg/dL Albumin 3.5 L (3.9-5) g/dL Pituitary panel 06/24/18 Range/Units 04:44 Sodium 141 (137-145) mmol/L Potassium 4.0 (3.6-5.0) mmol/L Chloride 104.6 (98-107) mmol/L Carbon Dioxide 25 (22-30) mmol/L BUN 10 (7-17) mg/dL Creatinine 0.6 L (0.7-1.2) mg/dL Glucose 88 (65-100) mg/dL Calcium 9.0 (8.4-10.2) mg/dL Adrenal panel 06/24/18 Range/Units 04:44 Sodium 141 (137-145) mmol/L Potassium 4.0 (3.6-5.0) mmol/L Chloride 104.6 (98-107) mmol/L Carbon Dioxide 25 (22-30) mmol/L BUN 10 (7-17) mg/dL Creatinine 0.6 L (0.7-1.2) mg/dL Glucose 88 (65-100) mg/dL Calcium 9.0 (8.4-10.2) mg/dL Total Bilirubin 0.70 (0.1-1.2) mg/dL AST 79 H (5-40) units/L ALT 88 H (7-56) units/L Alkaline Phosphatase 76 (35-129) units/L Total Protein 6.5 (6.3-8.2) g/dL Albumin 3.5 L (3.9-5) g/dL
[2018-06-24] MEDS ORDERED: WATER FOR IRRIG STERILE IR ONE ×2 (10:59→18:48)
[2018-06-24] MEDS ORDERED: NACL 0.9% 100 ML ONE ×2 (10:59→18:48)
--- NOTE | 2018-06-24 14:28 | Progress Note ---
Assessment and Plan Assessment and plan: This is a 53-year-old woman with a history of lumbar radiculopathy was seen in the emergency room for worsening back pain radiating to the left side without any associated symptoms, no bowel or bladder incontinence. Her workup was negative and she was given IV.morphine for pain. After pain medication she developed epigastric pain which she describes as sharp pain and also involve her lower abdomen and associated with nausea. A CAT scan of the abdomen and pelvis was done which shows dilated colon bile duct, surgery was consultative to see the patient. 1. Abnormal biliary dilation 2. Epigastric pain secondary to cholelithiasis 3. H/o chronic pain 4. Accelerated Hypertension (improving) 5. Cholelithiasis 6. Chronic back pain 7. 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, SSaulP MIKE DRIVER Hospitalist Physical - Physical exam Narrative exam: General appearance: Present: no acute distress, morbidly obese - EENT Eyes: Present: EOM intact ENT: hearing intact, clear oral mucosa - Neck Neck: Present: supple, normal ROM - Respiratory Respiratory effort: normal Respiratory: bilateral: CTA - Cardiovascular Rhythm: regular - Extremities Extremities: no ischemia Extremity abnormal: edema Peripheral Pulses: within normal limits - Abdominal General gastrointestinal: Present: tender (mild epigastric tenderness) Female genitourinary: Present: deferred - Rectal Rectal Exam: deferred - Integumentary Integumentary: Present: clear, warm - Musculoskeletal Musculoskeletal: strength equal bilaterally - Psychiatric Psychiatric: appropriate mood/affect - Neurologic Neurologic: moves all extremities - Constitutional Vitals: Temp Pulse Resp BP Pulse Ox 98.4 F 69 20 141/59 94 06/24/18 11:19 06/24/18 11:19 06/24/18 11:19 06/24/18 11:19 06/24/18 11:19 General appearance: Present: no acute distress Results - Labs CBC & Chem 7: 06/24/18 04:44 06/24/18 04:44 Labs: Laboratory Last Values WBC 6.5 K/mm3 (4.5-11.0) 06/24/18 04:44 RBC 4.56 M/mm3 (3.65-5.03) 06/24/18 04:44 Hgb 12.2 gm/dl (10.1-14.3) 06/24/18 04:44 Hct 37.8 % (30.3-42.9) 06/24/18 04:44 MCV 83 fl (79-97) 06/24/18 04:44 MCH 27 pg (28-32) L 06/24/18 04:44 MCHC 32 % (30-34) 06/24/18 04:44 RDW 15.0 % (13.2-15.2) 06/24/18 04:44 Plt Count 245 K/mm3 (140-440) 06/24/18 04:44 Lymph % (Auto) 27.6 % (13.4-35.0) 06/24/18 04:44 [place] % (Auto) 6.9 % (0.0-7.3) 06/24/18 04:44 Eos % (Auto) 0.2 % (0.0-4.3) 06/24/18 04:44 Baso % (Auto) 0.6 % (0.0-1.8) 06/24/18 04:44 Lymph # 1.8 K/mm3 (1.2-5.4) 06/24/18 04:44 [place] # 0.5 K/mm3 (0.0-0.8) 06/24/18 04:44 Eos # 0.0 K/mm3 (0.0-0.4) 06/24/18 04:44 Baso # 0.0 K/mm3 (0.0-0.1) 06/24/18 04:44 Seg Neutrophils % 64.7 % (40.0-70.0) 06/24/18 04:44 Seg Neutrophils # 4.2 K/mm3 (1.8-7.7) 06/24/18 04:44 PT 14.6 Sec. (12.2-14.9) 06/24/18 04:44 INR 1.10 (0.87-1.13) 06/24/18 04:44 Sodium 141 mmol/L (137-145) 06/24/18 04:44 Potassium 4.0 mmol/L (3.6-5.0) 06/24/18 04:44 Chloride 104.6 mmol/L (98-107) 06/24/18 04:44 Carbon Dioxide 25 mmol/L (22-30) 06/24/18 04:44 Anion Gap 15 mmol/L 06/24/18 04:44 BUN 10 mg/dL (7-17) 06/24/18 04:44 Creatinine 0.6 mg/dL (0.7-1.2) L 06/24/18 04:44 Estimated GFR > 60 ml/min 06/24/18 04:44 BUN/Creatinine Ratio 17 % 06/24/18 04:44 Glucose 88 mg/dL (65-100) 06/24/18 04:44 Calcium 9.0 mg/dL (8.4-10.2) 06/24/18 04:44 Total Bilirubin 0.70 mg/dL (0.1-1.2) 06/24/18 04:44 AST 79 units/L (5-40) H 06/24/18 04:44 ALT 88 units/L (7-56) H 06/24/18 04:44 Alkaline Phosphatase 76 units/L (35-129) 06/24/18 04:44 Troponin T < 0.010 ng/mL (0.00-0.029) 06/21/18 13:59 Total Protein 6.5 g/dL (6.3-8.2) 06/24/18 04:44 Albumin 3.5 g/dL (3.9-5) L 06/24/18 04:44 Albumin/Globulin Ratio 1.2 % 06/24/18 04:44 Lipase 45 units/L (13-60) 06/21/18 13:59
[2018-06-24] MEDS: NACL 0.9% 1000 ML 1,000 ML IV SCH (15:27)
[2018-06-24] MEDS ORDERED: MORPHINE ONE (16:06)
[2018-06-24] MEDS ORDERED: XYLOCAINE MPF 2% ONE (18:41)
[2018-06-24] MEDS ORDERED: DIPRIVAN 10 MG/ML IV ONE ×3 (18:41)
[2018-06-24] MEDS ORDERED: GLUCAGEN ONE (18:49)
[2018-06-24] MEDS ORDERED: SUBLIMAZE ONE (19:10)
[2018-06-24] MEDS ORDERED: DECADRON ONE (19:32)
--- NOTE | 2018-06-24 19:39 | Post Operative Note ---
Pre-op diagnosis: biliary obstruction Post-op diagnosis: same Findings: ERCP: nl ampullae - dilated cbd w/ possible mild stenosis - sphinterotomy - no stone removed w/ balloon - negative other Procedure: ERCP Anesthesia: MAC Surgeon: ROYCE TREJO Estimated blood loss: none Pathology: list Specimen disposition: to lab Condition: stable Disposition: floor
--- NOTE | 2018-06-24 20:15 | Operative Report ---
PROCEDURE: ERCP with sphincterotomy and balloon pass. INDICATIONS: 1. Possible choledocholithiasis. 2. Abdominal pain. MEDICATIONS: Propofol per [employer]ENT TRANSMISSION. COMPLICATIONS: None. DESCRIPTION OF PROCEDURE: The patient was brought to procedure suite. The patient had the procedure discussed with her at length. All risks, complications, and benefits discussed after which the patient signed for the procedure to be performed. The patient placed in left lateral decubitus position. Mouth block was placed in the patient's oral cavity. After adequate sedation medication as above, the endoscope was introduced into the mouth and brought to level of the second portion of duodenum. Retroflexion view was performed. The patient's vital signs remained stable throughout the procedure. FINDINGS: There was normal-appearing esophagus and stomach. The ampulla in the second portion of duodenum appeared normal. cholangiogram performed. Cholangiogram showed a slightly dilated common bile duct approximately 9 mm with no obvious filling defects and some slightly abrupt taper at the distal common bile duct. Moderate sphincterotomy was performed. A 9-12 mm balloon was then used to sweep the common bile duct multiple times with no obvious stones or sludge removed. Occlusion cholangiogram showed no other filling defects. No pancreatogram was performed. The patient tolerated the procedure well. No complications during the procedure. IMPRESSION: 1. Normal-appearing esophagus and stomach. 2. Cholangiogram with now slightly dilated common bile duct with slightly abrupt tapered common bile duct representing possible mild papillary stenosis. 3. Sphinterotomy performed. 4. Balloon sweeping of the common bile duct without stones removed. 5. Otherwise, benign procedure. RECOMMENDATIONS: 1. Follow labs. 2. Advance diet. 3. If stable in a.m., okay to discharge from GI standpoint. JOB# [id number] [facility]
[2018-06-25] MEDS: PERCOCET 5/325 PO PRN ×4 (00:06→19:57)
[2018-06-25] MEDS: ZOFRAN IV PRN (03:58)
[2018-06-25] MEDS: MORPHINE IV PRN ×7 (04:00→23:16)
[2018-06-25] MEDS ORDERED: PEPTO BISMOL PO ONE (05:28)
[2018-06-25] MEDS ORDERED: BENTYL PO ONE (06:50)
--- NOTE | 2018-06-25 07:15 | XRay Report ---
FINAL REPORT EXAM: XR ABDOMEN 1V AP HISTORY: severe abd pain COMPARISONS: 06/21/2018 CT FINDINGS: AP supine views of the abdomen and pelvis No evident pneumoperitoneum. Bowel gas pattern appears nonobstructive. Moderate to large stool burden . No pathologic calcification or fracture. Right upper quadrant surgical clips. IMPRESSION: Moderate to large stool burden. No evident acute finding. Consider additional imaging for worsening/p ersistent symptoms.
[2018-06-25] MEDS ORDERED: CITRATE OF MAGNESIA PO NR (08:40)
--- NOTE | 2018-06-25 08:50 | Gastroenterology Progress Note ---
Assessment and Plan GI: pt s/p lap aleksandr now s/p ercp [facility] sphinterotomy - reports some pain this am with kub showing constipation - mag citrate x 1 this am and Miralax qd - diet as tolerated - if pain stable ok to d/c from GI standpoint - will follow for now Subjective Date of service: 06/25/18 Interval history: - reports some pain now better and constipation recent days Objective - Constitutional Vitals: Temp Pulse Resp BP Pulse Ox 98.0 F 73 20 157/73 90 06/25/18 07:44 06/25/18 07:44 06/25/18 07:44 06/25/18 07:44 06/25/18 07:44 General appearance: no acute distress - EENT Eyes: PERRL - Respiratory Respiratory: bilateral: CTA - Cardiovascular Rhythm: regular Heart Sounds: Present: S1 & S2 - Gastrointestinal General gastrointestinal: Present: soft, non-tender, non-distended - Labs CBC & Chem 7: 06/24/18 04:44 06/24/18 04:44
--- NOTE | 2018-06-25 09:11 | Progress Note ---
Assessment and Plan Assessment and plan: This is a 53-year-old woman with a history of lumbar radiculopathy was seen in the emergency room for worsening back pain radiating to the left side without any associated symptoms, no bowel or bladder incontinence. Her workup was negative and she was given IV.morphine for pain. After pain medication she developed epigastric pain which she describes as sharp pain and also involve her lower abdomen and associated with nausea. A CAT scan of the abdomen and pelvis was done which shows dilated colon bile duct, surgery was consultative to see the patient. 1. Abnormal biliary dilation 2. Epigastric pain secondary to cholelithiasis 3. H/o chronic pain 4. Accelerated Hypertension (improving) 5. Cholelithiasis 6. Chronic back pain 7. Morbid Obesity 8. Constipation PLan Supportive care S/P Cholecystectomy s/p ERCP Noted mild elevation in Tranaminse, will monitor one extra day. check lipase. Control pain kub Showed constipation and per GI mag citrate x 1 this am and Miralax qd Anticipate discharge in am IVF for hydration Pain control with IV Morphine Counselling for weightloss provided DVT/GI prophy Plan discussed with surgery History Interval history: Patient seen and examined today, S.P LAP NEISHA and ERCP. Patient this am, reports abdominal pain, epigastric and more than yesterday. Denies any nausea or vomiting. Hospitalist Physical - Physical exam Narrative exam: General appearance: Present: no acute distress, morbidly obese - EENT Eyes: Present: EOM intact ENT: hearing intact, clear oral mucosa - Neck Neck: Present: supple, normal ROM - Respiratory Respiratory effort: normal Respiratory: bilateral: CTA - Cardiovascular Rhythm: regular - Extremities Extremities: no ischemia Extremity abnormal: edema Peripheral Pulses: within normal limits - Abdominal General gastrointestinal: Present: tender (mild epigastric tenderness) Female genitourinary: Present: deferred - Rectal Rectal Exam: deferred - Integumentary Integumentary: Present: clear, warm - Musculoskeletal Musculoskeletal: strength equal bilaterally - Psychiatric Psychiatric: appropriate mood/affect - Neurologic Neurologic: moves all extremities - Constitutional Vitals: Temp Pulse Resp BP Pulse Ox 98.0 F 73 20 157/73 90 06/25/18 07:44 06/25/18 07:44 06/25/18 07:44 06/25/18 07:44 06/25/18 07:44 General appearance: Present: no acute distress Results - Labs CBC & Chem 7: 06/24/18 04:44 06/24/18 04:44 Labs: Laboratory Last Values WBC 6.5 K/mm3 (4.5-11.0) 06/24/18 04:44 RBC 4.56 M/mm3 (3.65-5.03) 06/24/18 04:44 Hgb 12.2 gm/dl (10.1-14.3) 06/24/18 04:44 Hct 37.8 % (30.3-42.9) 06/24/18 04:44 MCV 83 fl (79-97) 06/24/18 04:44 MCH 27 pg (28-32) L 06/24/18 04:44 MCHC 32 % (30-34) 06/24/18 04:44 RDW 15.0 % (13.2-15.2) 06/24/18 04:44 Plt Count 245 K/mm3 (140-440) 06/24/18 04:44 Lymph % (Auto) 27.6 % (13.4-35.0) 06/24/18 04:44 [place] % (Auto) 6.9 % (0.0-7.3) 06/24/18 04:44 Eos % (Auto) 0.2 % (0.0-4.3) 06/24/18 04:44 Baso % (Auto) 0.6 % (0.0-1.8) 06/24/18 04:44 Lymph # 1.8 K/mm3 (1.2-5.4) 06/24/18 04:44 [place] # 0.5 K/mm3 (0.0-0.8) 06/24/18 04:44 Eos # 0.0 K/mm3 (0.0-0.4) 06/24/18 04:44 Baso # 0.0 K/mm3 (0.0-0.1) 06/24/18 04:44 Seg Neutrophils % 64.7 % (40.0-70.0) 06/24/18 04:44 Seg Neutrophils # 4.2 K/mm3 (1.8-7.7) 06/24/18 04:44 PT 14.6 Sec. (12.2-14.9) 06/24/18 04:44 INR 1.10 (0.87-1.13) 06/24/18 04:44 Sodium 141 mmol/L (137-145) 06/24/18 04:44 Potassium 4.0 mmol/L (3.6-5.0) 06/24/18 04:44 Chloride 104.6 mmol/L (98-107) 06/24/18 04:44 Carbon Dioxide 25 mmol/L (22-30) 06/24/18 04:44 Anion Gap 15 mmol/L 06/24/18 04:44 BUN 10 mg/dL (7-17) 06/24/18 04:44 Creatinine 0.6 mg/dL (0.7-1.2) L 06/24/18 04:44 Estimated GFR > 60 ml/min 06/24/18 04:44 BUN/Creatinine Ratio 17 % 06/24/18 04:44 Glucose 88 mg/dL (65-100) 06/24/18 04:44 Calcium 9.0 mg/dL (8.4-10.2) 06/24/18 04:44 Total Bilirubin 0.70 mg/dL (0.1-1.2) 06/24/18 04:44 AST 79 units/L (5-40) H 06/24/18 04:44 ALT 88 units/L (7-56) H 06/24/18 04:44 Alkaline Phosphatase 76 units/L (35-129) 06/24/18 04:44 Troponin T < 0.010 ng/mL (0.00-0.029) 06/21/18 13:59 Total Protein 6.5 g/dL (6.3-8.2) 06/24/18 04:44 Albumin 3.5 g/dL (3.9-5) L 06/24/18 04:44 Albumin/Globulin Ratio 1.2 % 06/24/18 04:44 Lipase 45 units/L (13-60) 06/21/18 13:59
[2018-06-25] MEDS: PROTONIX IV SCH (09:30)
[2018-06-25] MEDS: MIRALAX 3350 PO SCH (09:30)
[2018-06-25] MEDS: SODIUM CHLORIDE FLUSH SYRINGE 10 ML IV SCH ×2 (09:33→21:14)
[2018-06-25] MEDS: NACL 0.9% 1000 ML 1,000 ML IV SCH (18:10)
[2018-06-25] MEDS ORDERED: CITRATE OF MAGNESIA PO ONE (19:00)
[2018-06-26] MEDS: PERCOCET 5/325 PO PRN ×3 (01:19→21:47)
[2018-06-26] MEDS: DULCOLAX PR PRN (01:48)
[2018-06-26] MEDS: MORPHINE IV PRN ×2 (03:53→08:23)
[2018-06-26 05:37] LABS: Alanine Aminotransferase 85 units/L (7-56); Albumin 3.8 g/dL (3.9-5); BUN/Creatinine Ratio 18; Blood Urea Nitrogen 11 mg/dL (7-17); Hemolysis Index 10
[2018-06-26] MEDS ORDERED: DILAUDID IV PRN (09:03)
[2018-06-26] MEDS ORDERED: NACL 0.9% 1000 ML 1,000 ML IV ONE (09:04)
--- NOTE | 2018-06-26 09:08 | Progress Note ---
Assessment and Plan Assessment and plan: This is a 53-year-old woman with a history of lumbar radiculopathy was seen in the emergency room for worsening back pain radiating to the left side without any associated symptoms, no bowel or bladder incontinence. Her workup was negative and she was given IV.morphine for pain. After pain medication she developed epigastric pain which she describes as sharp pain and also involve her lower abdomen and associated with nausea. A CAT scan of the abdomen and pelvis was done which shows dilated colon bile duct, surgery was consultative to see the patient. 1. Abnormal biliary dilation 2. Acute Pancreatitis 3. Epigastric pain secondary to cholelithiasis 4. Accelerated Hypertension (improving) 5. Cholelithiasis 6. Chronic back pain 7. Morbid Obesity 8. Constipation 9. H/o chronic pain PLan Supportive care S/P Cholecystectomy s/p ERCP Noted mild elevation in Tranaminse, will monitor one extra day. Adjust Pain medication. ADD Hydromorphone KEEP NPO Give a liter bolus of fluids then NS at 150cc/hr Control pain Stool softerners IVF for hydration Counselling for weightloss provided DVT/GI prophy Plan discussed with surgery History Interval history: Patient seen and examined today, S.P LAP NEISHA and ERCP. Patient this am, still with abdominal pain, epigastric 5/10 in intensity. Denies any nausea or vomiting. Hospitalist Physical - Physical exam Narrative exam: General appearance: Present: no acute distress, morbidly obese - EENT Eyes: Present: EOM intact ENT: hearing intact, clear oral mucosa - Neck Neck: Present: supple, normal ROM - Respiratory Respiratory effort: normal Respiratory: bilateral: CTA - Cardiovascular Rhythm: regular - Extremities Extremities: no ischemia Extremity abnormal: edema Peripheral Pulses: within normal limits - Abdominal General gastrointestinal: Present: tender (epigastric tenderness) Female genitourinary: Present: deferred - Rectal Rectal Exam: deferred - Integumentary Integumentary: Present: clear, warm - Musculoskeletal Musculoskeletal: strength equal bilaterally - Psychiatric Psychiatric: appropriate mood/affect - Neurologic Neurologic: moves all extremities - Constitutional Vitals: Temp Pulse Resp BP Pulse Ox 97.6 F 98 H 18 136/72 98 06/26/18 04:45 06/26/18 04:45 06/26/18 04:45 06/26/18 04:45 06/26/18 04:45 General appearance: Present: no acute distress Results - Labs CBC & Chem 7: 06/24/18 04:44 06/26/18 04:48 Labs: Laboratory Last Values WBC 6.5 K/mm3 (4.5-11.0) 06/24/18 04:44 RBC 4.56 M/mm3 (3.65-5.03) 06/24/18 04:44 Hgb 12.2 gm/dl (10.1-14.3) 06/24/18 04:44 Hct 37.8 % (30.3-42.9) 06/24/18 04:44 MCV 83 fl (79-97) 06/24/18 04:44 MCH 27 pg (28-32) L 06/24/18 04:44 MCHC 32 % (30-34) 06/24/18 04:44 RDW 15.0 % (13.2-15.2) 06/24/18 04:44 Plt Count 245 K/mm3 (140-440) 06/24/18 04:44 Lymph % (Auto) 27.6 % (13.4-35.0) 06/24/18 04:44 [place] % (Auto) 6.9 % (0.0-7.3) 06/24/18 04:44 Eos % (Auto) 0.2 % (0.0-4.3) 06/24/18 04:44 Baso % (Auto) 0.6 % (0.0-1.8) 06/24/18 04:44 Lymph # 1.8 K/mm3 (1.2-5.4) 06/24/18 04:44 [place] # 0.5 K/mm3 (0.0-0.8) 06/24/18 04:44 Eos # 0.0 K/mm3 (0.0-0.4) 06/24/18 04:44 Baso # 0.0 K/mm3 (0.0-0.1) 06/24/18 04:44 Seg Neutrophils % 64.7 % (40.0-70.0) 06/24/18 04:44 Seg Neutrophils # 4.2 K/mm3 (1.8-7.7) 06/24/18 04:44 PT 14.6 Sec. (12.2-14.9) 06/24/18 04:44 INR 1.10 (0.87-1.13) 06/24/18 04:44 Sodium 139 mmol/L (137-145) 06/26/18 04:48 Potassium 3.5 mmol/L (3.6-5.0) L 06/26/18 04:48 Chloride 101.9 mmol/L (98-107) 06/26/18 04:48 Carbon Dioxide 27 mmol/L (22-30) 06/26/18 04:48 Anion Gap 14 mmol/L 06/26/18 04:48 BUN 11 mg/dL (7-17) 06/26/18 04:48 Creatinine 0.6 mg/dL (0.7-1.2) L 06/26/18 04:48 Estimated GFR > 60 ml/min 06/26/18 04:48 BUN/Creatinine Ratio 18 % 06/26/18 04:48 Glucose 135 mg/dL (65-100) H 06/26/18 04:48 Calcium 9.0 mg/dL (8.4-10.2) 06/26/18 04:48 Total Bilirubin 1.00 mg/dL (0.1-1.2) 06/26/18 04:48 AST 79 units/L (5-40) H 06/26/18 04:48 ALT 85 units/L (7-56) H 06/26/18 04:48 Alkaline Phosphatase 70 units/L (35-129) 06/26/18 04:48 Troponin T < 0.010 ng/mL (0.00-0.029) 06/21/18 13:59 Total Protein 7.0 g/dL (6.3-8.2) 06/26/18 04:48 Albumin 3.8 g/dL (3.9-5) L 06/26/18 04:48 Albumin/Globulin Ratio 1.2 % 06/26/18 04:48 Lipase 4301 units/L (13-60) H 06/25/18 09:14
[2018-06-26] MEDS ORDERED: SENOKOT S PO PRN (10:00)
[2018-06-26] MEDS: PROTONIX IV SCH (10:39)
[2018-06-26] MEDS: SODIUM CHLORIDE FLUSH SYRINGE 10 ML IV SCH ×2 (10:39→21:56)
[2018-06-26] MEDS: MIRALAX 3350 PO SCH (10:39)
[2018-06-26] MEDS: DILAUDID IV PRN ×4 (12:57→22:58)
[2018-06-26] MEDS: NACL 0.9% 1000 ML 1,000 ML IV SCH (12:58)
--- NOTE | 2018-06-26 13:44 | Gastroenterology Progress Note ---
Assessment and Plan GI: s/p lap aleksandr with then benign ercp with sphinterotomy - noted increase Lipase (can occur after ERCP) now improving - continue conservative management - labs and CRP in am - start po when improving - will follow Subjective Date of service: 06/26/18 Interval history: - reports still with some abdominal pain Objective - Constitutional Vitals: Temp Pulse Resp BP Pulse Ox 98.1 F 102 H 22 114/61 97 06/26/18 11:58 06/26/18 11:58 06/26/18 11:58 06/26/18 11:58 06/26/18 11:58 General appearance: no acute distress - EENT Eyes: PERRL - Respiratory Respiratory: bilateral: CTA - Cardiovascular Rhythm: regular Heart Sounds: Present: S1 & S2 - Gastrointestinal General gastrointestinal: Present: soft, non-tender, non-distended - Labs CBC & Chem 7: 06/24/18 04:44 06/26/18 04:48 Labs: Laboratory Results - last 24 hr 06/26/18 06/26/18 04:48 04:48 Sodium 139 Potassium 3.5 L Chloride 101.9 Carbon Dioxide 27 Anion Gap 14 BUN 11 Creatinine 0.6 L Estimated GFR > 60 BUN/Creatinine Ratio 18 Glucose 135 H Calcium 9.0 Total Bilirubin 1.00 AST 79 H ALT 85 H Alkaline Phosphatase 70 Total Protein 7.0 Albumin 3.8 L Albumin/Globulin Ratio 1.2 Lipase 1506 H
[2018-06-27] MEDS ORDERED: BENTYL IM ONE (02:15)
[2018-06-27] MEDS: DILAUDID IV PRN ×6 (02:41→20:31)
[2018-06-27] MEDS: NACL 0.9% 1000 ML 1,000 ML IV SCH ×4 (03:00→21:45)
[2018-06-27 04:43] LABS: Albumin 2.7 g/dL (3.9-5); BUN/Creatinine Ratio 24; Blood Urea Nitrogen 12 mg/dL (7-17); C-Reactive Protein 29.2 mg/dL (0.00-1.30); Calcium 8.5 mg/dL (8.4-10.2); Hemolysis Index 104
[2018-06-27] MEDS: PERCOCET 5/325 PO PRN ×3 (05:30→18:33)
[2018-06-27 06:04] LABS: Alanine Aminotransferase 127 units/L (7-56)
--- NOTE | 2018-06-27 08:19 | Fluoroscopy Report ---
FLUORO ERCP BILIARY DUCT: INDICATION: Dilated CBD. COMPARISON: 06/22/2018 MRCP. IMAGES/CINE CLIPS: 4 FINDINGS: Fluoroscopy provided by radiology during ERCP. Multiple right upper quadrant fluoroscopic images suggest prominent/dilated common bile duct with caliber up to approximately 1 cm. No persistent filling defects suspected. Mild intrahepatic biliary dilatation centrally possible. The pancreatic duct was not injected. CONCLUSION: Dilated CBD, as described. Please also correlate with procedure report by Dr. Chaparro. Thank you for the opportunity to participate in this patient's care.
[2018-06-27] MEDS: PROTONIX IV SCH (09:26)
[2018-06-27] MEDS: MIRALAX 3350 PO SCH (09:26)
[2018-06-27] MEDS: SODIUM CHLORIDE FLUSH SYRINGE 10 ML IV SCH ×2 (09:27→21:45)
--- NOTE | 2018-06-27 09:33 | Progress Note ---
Assessment and Plan Assessment and plan: This is a 53-year-old woman with a history of lumbar radiculopathy was seen in the emergency room for worsening back pain radiating to the left side without any associated symptoms, no bowel or bladder incontinence. Her workup was negative and she was given IV.morphine for pain. After pain medication she developed epigastric pain which she describes as sharp pain and also involve her lower abdomen and associated with nausea. A CAT scan of the abdomen and pelvis was done which shows dilated colon bile duct, surgery was consultative to see the patient. * s/p lap aleksandr with then benign ercp with sphinterotomy * noted increase Lipase (can occur after ERCP) now improving 1. Abnormal biliary dilation 2. Acute Pancreatitis- expected elevation in Lipase post ERC 3. Epigastric pain secondary to cholelithiasis 4. Accelerated Hypertension (improving) 5. Cholelithiasis 6. Chronic back pain 7. Morbid Obesity 8. Constipation 9. H/o chronic pain 10. Hyperkalemia Plan Supportive care S/P Cholecystectomy s/p ERCP Noted mild elevation in Transaminse, Start Clear liquids today and advance as tolerated Adjust Pain medication. ADD Hydromorphone Stool softeners IVF for hydration Counselling for weightloss provided DVT/GI prophy Plan discussed with surgery Cand discharge when tolerating History Interval history: Patient seen and examined today, S.P LAP ALEKSANDR and ERCP. Patient this am, still with abdominal pain but improving, epigastric 3/10 in intensity. Denies any nausea or vomiting. Although she reports a difficult night Hospitalist Physical - Physical exam Narrative exam: General appearance: Present: no acute distress, morbidly obese - EENT Eyes: Present: EOM intact ENT: hearing intact, clear oral mucosa - Neck Neck: Present: supple, normal ROM - Respiratory Respiratory effort: normal Respiratory: bilateral: CTA - Cardiovascular Rhythm: regular - Extremities Extremities: no ischemia Extremity abnormal: edema Peripheral Pulses: within normal limits - Abdominal General gastrointestinal: Present: tender (epigastric tenderness) Female genitourinary: Present: deferred - Rectal Rectal Exam: deferred - Integumentary Integumentary: Present: clear, warm - Musculoskeletal Musculoskeletal: strength equal bilaterally - Psychiatric Psychiatric: appropriate mood/affect - Neurologic Neurologic: moves all extremities - Constitutional Vitals: Temp Pulse Resp BP Pulse Ox 98.6 F 109 H 20 152/80 96 06/27/18 05:56 06/27/18 05:56 06/27/18 05:56 06/27/18 05:56 06/27/18 05:56 General appearance: Present: no acute distress Results - Labs CBC & Chem 7: 06/24/18 04:44 06/27/18 04:04 Labs: Laboratory Last Values WBC 6.5 K/mm3 (4.5-11.0) 06/24/18 04:44 RBC 4.56 M/mm3 (3.65-5.03) 06/24/18 04:44 Hgb 12.2 gm/dl (10.1-14.3) 06/24/18 04:44 Hct 37.8 % (30.3-42.9) 06/24/18 04:44 MCV 83 fl (79-97) 06/24/18 04:44 MCH 27 pg (28-32) L 06/24/18 04:44 MCHC 32 % (30-34) 06/24/18 04:44 RDW 15.0 % (13.2-15.2) 06/24/18 04:44 Plt Count 245 K/mm3 (140-440) 06/24/18 04:44 Lymph % (Auto) 27.6 % (13.4-35.0) 06/24/18 04:44 [place] % (Auto) 6.9 % (0.0-7.3) 06/24/18 04:44 Eos % (Auto) 0.2 % (0.0-4.3) 06/24/18 04:44 Baso % (Auto) 0.6 % (0.0-1.8) 06/24/18 04:44 Lymph # 1.8 K/mm3 (1.2-5.4) 06/24/18 04:44 [place] # 0.5 K/mm3 (0.0-0.8) 06/24/18 04:44 Eos # 0.0 K/mm3 (0.0-0.4) 06/24/18 04:44 Baso # 0.0 K/mm3 (0.0-0.1) 06/24/18 04:44 Seg Neutrophils % 64.7 % (40.0-70.0) 06/24/18 04:44 Seg Neutrophils # 4.2 K/mm3 (1.8-7.7) 06/24/18 04:44 PT 14.6 Sec. (12.2-14.9) 06/24/18 04:44 INR 1.10 (0.87-1.13) 06/24/18 04:44 Sodium 137 mmol/L (137-145) 06/27/18 04:04 Potassium 5.6 mmol/L (3.6-5.0) H D 06/27/18 04:04 Chloride 104.3 mmol/L (98-107) 06/27/18 04:04 Carbon Dioxide 26 mmol/L (22-30) 06/27/18 04:04 Anion Gap 12 mmol/L 06/27/18 04:04 BUN 12 mg/dL (7-17) 06/27/18 04:04 Creatinine 0.5 mg/dL (0.7-1.2) L 06/27/18 04:04 Estimated GFR > 60 ml/min 06/27/18 04:04 BUN/Creatinine Ratio 24 % 06/27/18 04:04 Glucose 99 mg/dL (65-100) 06/27/18 04:04 Calcium 8.5 mg/dL (8.4-10.2) 06/27/18 04:04 Total Bilirubin 1.30 mg/dL (0.1-1.2) H 06/27/18 04:04 AST 68 units/L (5-40) H 06/27/18 04:04 ALT 127 units/L (7-56) H 06/27/18 04:04 Alkaline Phosphatase 86 units/L (35-129) 06/27/18 04:04 Troponin T < 0.010 ng/mL (0.00-0.029) 06/21/18 13:59 C-Reactive Protein 29.20 mg/dL (0.00-1.30) H 06/27/18 04:04 Total Protein 6.6 g/dL (6.3-8.2) 06/27/18 04:04 Albumin 2.7 g/dL (3.9-5) L 06/27/18 04:04 Albumin/Globulin Ratio 0.7 % 06/27/18 04:04 Lipase 190 units/L (13-60) H 06/27/18 04:04
[2018-06-27] MEDS ORDERED: KIONEX PO ONE (10:00)
--- NOTE | 2018-06-27 10:54 | Gastroenterology Progress Note ---
Addendum entered and electronically signed by ROYCE TREJO MD 06/27/18 15:21: - pt with some abdominal pain but improving - start po, advance based on progress - other rec as outlined below - will follow Original Note: Assessment and Plan 1.dilated CBD 2.abdominal pain (epigastric) 3.cholelithiasis -afebrile -WBC WNL -LFTs- T.yanira 1.30, AST 68, ALT 127, alk phos 86 -lipase 190-trending down -CRP 29.20 -s/p lap aleksandr with then benign ERCP with sphinterotomy -okay to start on trial of clear liquids -continue conservative management -continue to trend labs and supportive care -will follow Subjective Date of service: 06/27/18 Principal diagnosis: dilated CBD Interval history: No acute distress. Reports continued abd pain. No N/V. Objective - Constitutional Vitals: Temp Pulse Resp BP Pulse Ox 98.6 F 109 H 20 152/80 96 06/27/18 05:56 06/27/18 05:56 06/27/18 05:56 06/27/18 05:56 06/27/18 05:56 General appearance: no acute distress, obese - Respiratory Respiratory: bilateral: CTA - Cardiovascular Rhythm: other (tachycardia) - Gastrointestinal General gastrointestinal: Present: soft, tender (mild generalized TTP), non- distended, normal bowel sounds - Neurologic Neurological: alert and oriented x3 - Labs CBC & Chem 7: 06/24/18 04:44 06/27/18 04:04 Labs: Laboratory Results - last 24 hr 06/26/18 06/27/18 06/27/18 04:48 04:04 04:04 Sodium 137 Potassium 5.6 H D Chloride 104.3 Carbon Dioxide 26 Anion Gap 12 BUN 12 Creatinine 0.5 L Estimated GFR > 60 BUN/Creatinine Ratio 24 Glucose 99 Calcium 8.5 Total Bilirubin 1.30 H AST 68 H ALT 127 H Alkaline Phosphatase 86 C-Reactive Protein 29.20 H Total Protein 6.6 Albumin 2.7 L Albumin/Globulin Ratio 0.7 Lipase 1506 H 190 H
[2018-06-27] MEDS: DULCOLAX PR PRN (18:29)
[2018-06-27] MEDS: MORPHINE IV PRN (22:26)
[2018-06-28] MEDS: PERCOCET 5/325 PO PRN ×2 (00:26→12:59)
[2018-06-28] MEDS ORDERED: AMBIEN PO ONE (01:55)
[2018-06-28] MEDS: MORPHINE IV PRN ×4 (02:51→17:42)
[2018-06-28] MEDS: NACL 0.9% 1000 ML 1,000 ML IV SCH ×4 (03:06→21:37)
[2018-06-28 06:25] LABS: Hematocrit 35.9 % (30.3-42.9); Hemoglobin 11.5 gm/dl (10.1-14.3); Mean Corpuscular HGB Conc 32 % (30-34); Mean Corpuscular Volume 84 fl (79-97); Platelet Count 224 K/mm3 (140-440); Red Blood Count 4.29 M/mm3 (3.65-5.03); Red Cell Distribution Width 14.9 % (13.2-15.2)
[2018-06-28] MEDS ORDERED: APRESOLINE IV PRN (06:46)
[2018-06-28 06:52] LABS: Alanine Aminotransferase 66 units/L (7-56); Albumin 2.8 g/dL (3.9-5); BUN/Creatinine Ratio 12; Blood Urea Nitrogen 7 mg/dL (7-17); Calcium 8.1 mg/dL (8.4-10.2); Hemolysis Index 0
[2018-06-28] MEDS ORDERED: TORADOL IV PRN (08:53)
[2018-06-28] MEDS ORDERED: K-DUR PO ONE ×2 (09:30→13:00)
[2018-06-28] MEDS: MIRALAX 3350 PO SCH (10:00)
[2018-06-28] MEDS: PROTONIX IV SCH (10:02)
--- NOTE | 2018-06-28 10:05 | Gastroenterology Progress Note ---
Addendum entered and electronically signed by ROYCE TREJO MD 06/28/18 14:15: - signs pancreatitis on ct scan - clear liquid diet, advance based on progress - follow labs - hopefully d/c soon Original Note: Assessment and Plan 1.dilated CBD 2.abdominal pain (epigastric) 3.cholelithiasis -temp 99.6 -WBC 13.1-trending up -LFTs, lipase, and CRP-trending down -s/p lap aleksandr with then benign ERCP with sphinterotomy -surgery following -clinically, patient reports continued abd pain. No N/V. tolerating clears -repeat CT pending for today for evaluation of continued abd pain -continue on clears -continue to trend labs and supportive care -further recommendations to follow pending CT results Subjective Date of service: 06/28/18 Principal diagnosis: dilated CBD Interval history: No acute distress. Reports continued abd pain. No N/V. Tolerating clears. Objective - Constitutional Vitals: Temp Pulse Resp BP Pulse Ox 99.6 F 113 H 18 169/83 96 06/28/18 04:37 06/28/18 07:22 06/28/18 07:18 06/28/18 07:22 06/28/18 04:37 General appearance: no acute distress, obese - Respiratory Respiratory: bilateral: CTA (anterior) - Cardiovascular Rhythm: other (tachycardia) - Gastrointestinal General gastrointestinal: Present: soft, tender, non-distended, normal bowel sounds - Neurologic Neurological: alert and oriented x3 - Labs CBC & Chem 7: 06/28/18 05:33 06/28/18 05:33 Labs: Laboratory Results - last 24 hr 06/28/18 06/28/18 05:33 05:33 WBC 13.1 H RBC 4.29 Hgb 11.5 Hct 35.9 MCV 84 MCH 27 L MCHC 32 RDW 14.9 Plt Count 224 Sodium 142 Potassium 3.4 L D Chloride 106.9 Carbon Dioxide 24 Anion Gap 15 BUN 7 Creatinine 0.6 L Estimated GFR > 60 BUN/Creatinine Ratio 12 Glucose 94 Calcium 8.1 L Total Bilirubin 0.80 AST 24 ALT 66 H Alkaline Phosphatase 73 C-Reactive Protein 23.80 H Total Protein 5.8 L Albumin 2.8 L Albumin/Globulin Ratio 0.9
[2018-06-28] MEDS: SODIUM CHLORIDE FLUSH SYRINGE 10 ML IV SCH ×2 (10:57→21:34)
--- NOTE | 2018-06-28 12:11 | Cat Scan Report ---
CT ABDOMEN PELVIS WITH CONTRAST: HISTORY: abdominal pain. COMPARISON: 06/21/18. TECHNIQUE: Helical CT in 1.25mm intervals following IV contrast. Sagittal and coronal reconstructions. FINDINGS: Cholecystectomy has been performed since the previous exam. Small right pleural effusion and mild fluid in the right abdomen and paracolic gutter has developed since the previous exam. Fluid is surrounding the proximal pancreas. Acute pancreatitis should be considered. With history of recent cholecystectomy, a biliary leak is difficult to exclude in this patient. The liver, spleen, kidneys, adrenal glands, bowel loops, appendix and bladder are unremarkable. 5 cm exophytic fibroid from the anterior wall the uterus is noted. The adnexa are unremarkable. IMPRESSION: A mild degree of fluid and fat stranding is identified in the right abdomen and surrounding the pancreas. Correlate for acute pancreatitis. Recent cholecystectomy was performed. A biliary leak is difficult to exclude. Consider HIDA scan if acute pancreatitis is ruled out. Small right pleural effusion. Uterine fibroid.
--- NOTE | 2018-06-28 13:50 | Progress Note ---
Assessment and Plan 53 yo F s/p laparoscopic cholecystectomy with IOC, POD 5 s/p ERCP, pancreatitis - resolving Plan: 1. cont clear liquids, adv diet per GI 2. IVF 3. prn pain and nausea control. Add toradol to pain regimen 4. OOB-> ambulate 5. DVT PPX 6. IS/pulm toilet 7. CT scan A/P performed this am - pancreatitis. Thank you, please call with questions. Subjective Date of service: 06/28/18 Narrative: Pt seen and examined. c/o bloating in the mid abdomen and some sharp pain in the epigastric area and RUQ. No n/v but poor appetite. No f/c, cp, sob. Has not been getting OOB due to pain. She is on percocet and morphine for pain and states it does not help. Objective Vital Signs - 12hr 06/28/18 06/28/18 06/28/18 02:51 03:21 04:37 Temperature 99.6 F Pulse Rate 113 H Respiratory 19 18 24 Rate Blood Pressure 169/83 O2 Sat by Pulse 96 Oximetry 06/28/18 06/28/18 06/28/18 06:48 07:18 07:22 Temperature Pulse Rate 113 H Respiratory 17 18 Rate Blood Pressure 169/83 O2 Sat by Pulse Oximetry - General physical appearance Narrative Exam: Gen: AAOx3. NAD ENT: no scleral icterus or conjunctival pallor CV: S1, S2+ Resp; even and unlabored Abd: soft, ND, mild TTP in epigastrum, LUQ, RUQ. no r/r/g. Incisions c/d/i Ext: no c/c/e - Labs 06/28/18 05:33 06/28/18 05:33 Diabetes panel 06/28/18 Range/Units 05:33 Sodium 142 (137-145) mmol/L Potassium 3.4 L D (3.6-5.0) mmol/L Chloride 106.9 (98-107) mmol/L Carbon Dioxide 24 (22-30) mmol/L BUN 7 (7-17) mg/dL Creatinine 0.6 L (0.7-1.2) mg/dL Glucose 94 (65-100) mg/dL Calcium 8.1 L (8.4-10.2) mg/dL AST 24 (5-40) units/L ALT 66 H (7-56) units/L Alkaline Phosphatase 73 (35-129) units/L Total Protein 5.8 L (6.3-8.2) g/dL Albumin 2.8 L (3.9-5) g/dL Calcium panel 06/28/18 Range/Units 05:33 Calcium 8.1 L (8.4-10.2) mg/dL Albumin 2.8 L (3.9-5) g/dL Pituitary panel 06/28/18 Range/Units 05:33 Sodium 142 (137-145) mmol/L Potassium 3.4 L D (3.6-5.0) mmol/L Chloride 106.9 (98-107) mmol/L Carbon Dioxide 24 (22-30) mmol/L BUN 7 (7-17) mg/dL Creatinine 0.6 L (0.7-1.2) mg/dL Glucose 94 (65-100) mg/dL Calcium 8.1 L (8.4-10.2) mg/dL Adrenal panel 06/28/18 Range/Units 05:33 Sodium 142 (137-145) mmol/L Potassium 3.4 L D (3.6-5.0) mmol/L Chloride 106.9 (98-107) mmol/L Carbon Dioxide 24 (22-30) mmol/L BUN 7 (7-17) mg/dL Creatinine 0.6 L (0.7-1.2) mg/dL Glucose 94 (65-100) mg/dL Calcium 8.1 L (8.4-10.2) mg/dL Total Bilirubin 0.80 (0.1-1.2) mg/dL AST 24 (5-40) units/L ALT 66 H (7-56) units/L Alkaline Phosphatase 73 (35-129) units/L Total Protein 5.8 L (6.3-8.2) g/dL Albumin 2.8 L (3.9-5) g/dL
--- NOTE | 2018-06-28 14:18 | Progress Note ---
Assessment and Plan Assessment and plan: 53-year-old woman with a history of lumbar radiculopathy was seen in the emergency room for worsening back pain radiating to the left side without any associated symptoms, no bowel or bladder incontinence. Her workup was negative and she was given IV morphine for pain. After pain medication she developed epigastric pain which she describes as sharp pain and also involve her lower abdomen and associated with nausea. A CAT scan of the abdomen and pelvis was done which shows dilated colon bile duct, surgery was consulted to see the patient. s/p lap aleksandr with then benign ercp with sphinterotomy noted increase Lipase (can occur after ERCP) now improving 1. Abnormal biliary dilation; status post ERCP and sphincterotomy 2. Acute Pancreatitis-repeat CT also showed stranding around the pancreatic area. Patient started on clear liquids. Pain control. 3. Epigastric pain secondary to cholelithiasis; status post laparoscopic cholecystectomy. Current pain is due to pancreatitis 4. Accelerated Hypertension (improving) 5. Hyperkalemia 6. Chronic back pain 7. Morbid Obesity; counseled about weight loss 8. Constipation 9. H/o chronic pain Patient still has abdominal pain, couldn't tolerate it was unclear to conduct because of the pain. Repeat CAT scan not stranding around the pancreatic area suggestive of pancreatitis. We'll continue inpatient care. Patient's WBCs trending, we will continue to monitor. Patient is not septic and doesn't need antibiotics for now. History Interval history: Patient was seen and evaluated this morning, patient is complaining abdominal pain. Abdominal pain is getting worse with oral intake. Hospitalist Physical - Physical exam Narrative exam: Not in cardiopulmonary distress. The patient is obese. Vital signs as documented. Head exam is unremarkable. No scleral icterus . Neck is without jugular venous distension, thyromegaly, or carotid bruits. Lungs are clear to auscultation. Cardiac exam reveals regular rate and Rhythm. First and second heart sounds normal. No murmurs, rubs or gallops. Abdominal exam reveals normal bowel sounds, tenderness in the epigastric area, with no guarding or rigidity. Extremities are nonedematous and both femoral and pedal pulses are normal. HEALTHCARE ARCHITECT: Alert and oriented 3. No focal weakness. - Constitutional Vitals: Temp Pulse Resp BP Pulse Ox 99.6 F 113 H 18 169/83 96 06/28/18 04:37 06/28/18 07:22 06/28/18 07:18 06/28/18 07:22 06/28/18 04:37 General appearance: Present: no acute distress Results - Labs CBC & Chem 7: 06/28/18 05:33 06/28/18 05:33 Labs: Laboratory Last Values WBC 13.1 K/mm3 (4.5-11.0) H 06/28/18 05:33 RBC 4.29 M/mm3 (3.65-5.03) 06/28/18 05:33 Hgb 11.5 gm/dl (10.1-14.3) 06/28/18 05:33 Hct 35.9 % (30.3-42.9) 06/28/18 05:33 MCV 84 fl (79-97) 06/28/18 05:33 MCH 27 pg (28-32) L 06/28/18 05:33 MCHC 32 % (30-34) 06/28/18 05:33 RDW 14.9 % (13.2-15.2) 06/28/18 05:33 Plt Count 224 K/mm3 (140-440) 06/28/18 05:33 Lymph % (Auto) 27.6 % (13.4-35.0) 06/24/18 04:44 [place] % (Auto) 6.9 % (0.0-7.3) 06/24/18 04:44 Eos % (Auto) 0.2 % (0.0-4.3) 06/24/18 04:44 Baso % (Auto) 0.6 % (0.0-1.8) 06/24/18 04:44 Lymph # 1.8 K/mm3 (1.2-5.4) 06/24/18 04:44 [place] # 0.5 K/mm3 (0.0-0.8) 06/24/18 04:44 Eos # 0.0 K/mm3 (0.0-0.4) 06/24/18 04:44 Baso # 0.0 K/mm3 (0.0-0.1) 06/24/18 04:44 Seg Neutrophils % 64.7 % (40.0-70.0) 06/24/18 04:44 Seg Neutrophils # 4.2 K/mm3 (1.8-7.7) 06/24/18 04:44 PT 14.6 Sec. (12.2-14.9) 06/24/18 04:44 INR 1.10 (0.87-1.13) 06/24/18 04:44 Sodium 142 mmol/L (137-145) 06/28/18 05:33 Potassium 3.4 mmol/L (3.6-5.0) L D 06/28/18 05:33 Chloride 106.9 mmol/L (98-107) 06/28/18 05:33 Carbon Dioxide 24 mmol/L (22-30) 06/28/18 05:33 Anion Gap 15 mmol/L 06/28/18 05:33 BUN 7 mg/dL (7-17) 06/28/18 05:33 Creatinine 0.6 mg/dL (0.7-1.2) L 06/28/18 05:33 Estimated GFR > 60 ml/min 06/28/18 05:33 BUN/Creatinine Ratio 12 % 06/28/18 05:33 Glucose 94 mg/dL (65-100) 06/28/18 05:33 Calcium 8.1 mg/dL (8.4-10.2) L 06/28/18 05:33 Total Bilirubin 0.80 mg/dL (0.1-1.2) 06/28/18 05:33 AST 24 units/L (5-40) 06/28/18 05:33 ALT 66 units/L (7-56) H 06/28/18 05:33 Alkaline Phosphatase 73 units/L (35-129) 06/28/18 05:33 Troponin T < 0.010 ng/mL (0.00-0.029) 06/21/18 13:59 C-Reactive Protein 23.80 mg/dL (0.00-1.30) H 06/28/18 05:33 Total Protein 5.8 g/dL (6.3-8.2) L 06/28/18 05:33 Albumin 2.8 g/dL (3.9-5) L 06/28/18 05:33 Albumin/Globulin Ratio 0.9 % 06/28/18 05:33 Lipase 190 units/L (13-60) H 06/27/18 04:04
[2018-06-28] MEDS: TORADOL IV SCH ×2 (14:53→21:33)
[2018-06-28] MEDS: COLACE PO SCH (14:54)
[2018-06-29] MEDS: TORADOL IV SCH ×4 (02:19→19:57)
[2018-06-29] MEDS: NACL 0.9% 1000 ML 1,000 ML IV SCH ×3 (02:26→21:50)
[2018-06-29] MEDS: MORPHINE IV PRN ×4 (02:27→19:56)
[2018-06-29 05:37] LABS: Hematocrit 35.3 % (30.3-42.9); Hemoglobin 11.7 gm/dl (10.1-14.3); Mean Corpuscular HGB Conc 33 % (30-34); Mean Corpuscular Volume 83 fl (79-97); Platelet Count 228 K/mm3 (140-440); Red Blood Count 4.26 M/mm3 (3.65-5.03); Red Cell Distribution Width 14.8 % (13.2-15.2)
[2018-06-29 06:04] LABS: Alanine Aminotransferase 48 units/L (7-56); Albumin 2.7 g/dL (3.9-5); BUN/Creatinine Ratio 8; Blood Urea Nitrogen 4 mg/dL (7-17); Calcium 8.4 mg/dL (8.4-10.2); Hemolysis Index 2
[2018-06-29 06:49] LABS: Band Neutrophils # (Manual) 0.9 K/mm3; Basophils % (Manual) 0 % (0.0-1.8); Platelet Estimate Consistent w Auto; Total Cells Counted 100
[2018-06-29] MEDS: PROTONIX IV SCH (10:21)
[2018-06-29] MEDS: COLACE PO SCH (10:29)
[2018-06-29] MEDS: SODIUM CHLORIDE FLUSH SYRINGE 10 ML IV SCH ×2 (10:30→21:52)
[2018-06-29] MEDS: MIRALAX 3350 PO SCH (10:31)
--- NOTE | 2018-06-29 13:55 | Gastroenterology Progress Note ---
Addendum entered and electronically signed by ROYCE TREJO MD 06/29/18 14:32: - management as outlined - hopefully d/c in am - will follow Original Note: Assessment and Plan 1.dilated CBD 2.abdominal pain (epigastric) 3.cholelithiasis -afebrile -WBC 11.8-trending down -LFTs and lipase now trended down to normal -CRP 24.10 -s/p lap aleksandr with then benign ERCP with sphinterotomy -repeat CT showed pancreatitis -surgery following -clinically, patient reports abd pain slightly improved. No N/V. tolerating nico rs -continue clears today, start on soft diet in am -continue to trend labs and supportive care -if tolerates advanced diet in am, okay to be d/c per GI standpoint with f/u in clinic ~2weeks Subjective Date of service: 06/29/18 Principal diagnosis: dilated CBD Interval history: No acute distress. Reports abd pain slightly improved. No N/V. Tolerating clears. Objective - Constitutional Vitals: Temp Pulse Resp BP Pulse Ox 97.0 F L 100 H 20 158/75 98 06/29/18 12:02 06/29/18 12:02 06/29/18 12:02 06/29/18 12:02 06/29/18 12:02 General appearance: no acute distress, obese - Respiratory Respiratory: bilateral: CTA - Cardiovascular Rhythm: other (tachycardia) - Gastrointestinal General gastrointestinal: Present: soft, tender (mild TTP in upper abd), non- distended, normal bowel sounds - Neurologic Neurological: alert and oriented x3 - Labs CBC & Chem 7: 06/29/18 05:04 06/29/18 05:04 Labs: Laboratory Results - last 24 hr 06/29/18 06/29/18 06/29/18 05:04 05:04 05:04 WBC 11.8 H RBC 4.26 Hgb 11.7 Hct 35.3 MCV 83 MCH 27 L MCHC 33 RDW 14.8 Plt Count 228 Add Manual Diff Complete Total Counted 100 Seg Neuts % (Manual) 80.0 H Band Neutrophils % 8.0 Lymphocytes % (Manual) 2.0 L Reactive Lymphs % (Man) 0 Monocytes % (Manual) 9.0 H Eosinophils % (Manual) 1.0 Basophils % (Manual) 0 Metamyelocytes % 0 Myelocytes % 0 Promyelocytes % 0 Blast Cells % 0 Nucleated RBC % Not Reportable Seg Neutrophils # Man 9.4 H Band Neutrophils # 0.9 Lymphocytes # (Manual) 0.2 L Abs React Lymphs (Man) 0.0 Monocytes # (Manual) 1.1 H Eosinophils # (Manual) 0.1 Basophils # (Manual) 0.0 Metamyelocytes # 0.0 Myelocytes # 0.0 Promyelocytes # 0.0 Blast Cells # 0.0 WBC Morphology Not Reportable Hypersegmented Neuts Not Reportable Hyposegmented Neuts Not Reportable Hypogranular Neuts Not Reportable Smudge Cells Not Reportable Toxic Granulation Not Reportable Toxic Vacuolation Not Reportable Dohle Bodies Not Reportable Pelger-Huet Anomaly Not Reportable Micah Rods Not Reportable Platelet Estimate Consistent w auto Clumped Platelets Not Reportable Plt Clumps, EDTA Not Reportable Large Platelets Not Reportable Giant Platelets Not Reportable Platelet Satelliting Not Reportable Plt Morphology Comment Not Reportable RBC Morphology Not Reportable Dimorphic RBCs Not Reportable Polychromasia Not Reportable Hypochromasia Not Reportable Poikilocytosis Not Reportable Anisocytosis Not Reportable Microcytosis Not Reportable Macrocytosis Not Reportable Spherocytes Not Reportable Pappenheimer Bodies Not Reportable Sickle Cells Not Reportable Target Cells Not Reportable Tear Drop Cells Not Reportable Ovalocytes Not Reportable Helmet Cells Not Reportable [place] Bodies Not Reportable [place] Rings Not Reportable [place] Cells Not Reportable Bite Cells Not Reportable Crenated Cell Not Reportable Elliptocytes Not Reportable Acanthocytes (Spur) Not Reportable Rouleaux Not Reportable Hemoglobin C Crystals Not Reportable Schistocytes Not Reportable Malaria parasites Not Reportable [place] Bodies Not Reportable Hem Pathologist Commnt No Sodium 143 Potassium 3.8 Chloride 106.6 Carbon Dioxide 24 Anion Gap 16 BUN 4 L Creatinine 0.5 L Estimated GFR > 60 BUN/Creatinine Ratio 8 Glucose 89 Calcium 8.4 Total Bilirubin 0.60 AST 20 ALT 48 Alkaline Phosphatase 71 C-Reactive Protein 24.10 H Total Protein 6.0 L Albumin 2.7 L Albumin/Globulin Ratio 0.8 Lipase 30
--- NOTE | 2018-06-29 14:38 | Progress Note ---
Assessment and Plan Assessment and plan: 53-year-old woman with a history of lumbar radiculopathy was seen in the emergency room for worsening back pain radiating to the left side without any associated symptoms, no bowel or bladder incontinence. Her workup was negative and she was given IV morphine for pain. After pain medication she developed epigastric pain which she describes as sharp pain and also involve her lower abdomen and associated with nausea. A CAT scan of the abdomen and pelvis was done which shows dilated colon bile duct, surgery was consulted to see the patient. s/p lap aleksandr with then benign ercp with sphinterotomy noted increase Lipase (can occur after ERCP) now improving 1. Abnormal biliary dilation; status post ERCP and sphincterotomy 2. Acute Pancreatitis-repeat CT also showed stranding around the pancreatic area. Patient started on clear liquids. Pain control. 3. Epigastric pain secondary to cholelithiasis; status post laparoscopic cholecystectomy. Current pain is due to pancreatitis 4. Accelerated Hypertension (improving) 5. Hyperkalemia 6. Chronic back pain 7. Morbid Obesity; counseled about weight loss 8. Constipation 9. H/o chronic pain Will advance to full liquid diet. Repeat CAT scan not stranding around the pancreatic area suggestive of pancreatitis. We'll continue inpatient care. Charlie digna's WBCs trending down , we will continue to monitor. Patient is not septic and doesn't need antibiotics for now. Possible discharge tomorrow if she tolerated diet. History Interval history: Patient was seen and evaluated this morning, patient is complaining abdominal pain. still complaining abdominal pain. Hospitalist Physical - Physical exam Narrative exam: Not in cardiopulmonary distress. The patient is obese. Vital signs as documented. Head exam is unremarkable. No scleral icterus . Neck is without jugular venous distension, thyromegaly, or carotid bruits. Lungs are clear to auscultation. Cardiac exam reveals regular rate and Rhythm. First and second heart sounds normal. No murmurs, rubs or gallops. Abdominal exam reveals normal bowel sounds, tenderness in the epigastric area, with no guarding or rigidity. Extremities are nonedematous and both femoral and pedal pulses are normal. MATERIAL CHECKER: Alert and oriented 3. No focal weakness. - Constitutional Vitals: Temp Pulse Resp BP Pulse Ox 97.0 F L 100 H 20 158/75 98 06/29/18 12:02 06/29/18 12:02 06/29/18 12:02 06/29/18 12:02 06/29/18 12:02 General appearance: Present: no acute distress Results - Labs CBC & Chem 7: 06/29/18 05:04 06/29/18 05:04 Labs: Laboratory Last Values WBC 11.8 K/mm3 (4.5-11.0) H 06/29/18 05:04 RBC 4.26 M/mm3 (3.65-5.03) 06/29/18 05:04 Hgb 11.7 gm/dl (10.1-14.3) 06/29/18 05:04 Hct 35.3 % (30.3-42.9) 06/29/18 05:04 MCV 83 fl (79-97) 06/29/18 05:04 MCH 27 pg (28-32) L 06/29/18 05:04 MCHC 33 % (30-34) 06/29/18 05:04 RDW 14.8 % (13.2-15.2) 06/29/18 05:04 Plt Count 228 K/mm3 (140-440) 06/29/18 05:04 Lymph % (Auto) 27.6 % (13.4-35.0) 06/24/18 04:44 [place] % (Auto) 6.9 % (0.0-7.3) 06/24/18 04:44 Eos % (Auto) 0.2 % (0.0-4.3) 06/24/18 04:44 Baso % (Auto) 0.6 % (0.0-1.8) 06/24/18 04:44 Lymph # 1.8 K/mm3 (1.2-5.4) 06/24/18 04:44 [place] # 0.5 K/mm3 (0.0-0.8) 06/24/18 04:44 Eos # 0.0 K/mm3 (0.0-0.4) 06/24/18 04:44 Baso # 0.0 K/mm3 (0.0-0.1) 06/24/18 04:44 Add Manual Diff Complete 06/29/18 05:04 Total Counted 100 06/29/18 05:04 Seg Neutrophils % 64.7 % (40.0-70.0) 06/24/18 04:44 Seg Neuts % (Manual) 80.0 % (40.0-70.0) H 06/29/18 05:04 Band Neutrophils % 8.0 % 06/29/18 05:04 Lymphocytes % (Manual) 2.0 % (13.4-35.0) L 06/29/18 05:04 Reactive Lymphs % (Man) 0 % 06/29/18 05:04 Monocytes % (Manual) 9.0 % (0.0-7.3) H 06/29/18 05:04 Eosinophils % (Manual) 1.0 % (0.0-4.3) 06/29/18 05:04 Basophils % (Manual) 0 % (0.0-1.8) 06/29/18 05:04 Metamyelocytes % 0 % 06/29/18 05:04 Myelocytes % 0 % 06/29/18 05:04 Promyelocytes % 0 % 06/29/18 05:04 Blast Cells % 0 % 06/29/18 05:04 Nucleated RBC % Not Reportable 06/29/18 05:04 Seg Neutrophils # 4.2 K/mm3 (1.8-7.7) 06/24/18 04:44 Seg Neutrophils # Man 9.4 K/mm3 (1.8-7.7) H 06/29/18 05:04 Band Neutrophils # 0.9 K/mm3 06/29/18 05:04 Lymphocytes # (Manual) 0.2 K/mm3 (1.2-5.4) L 06/29/18 05:04 Abs React Lymphs (Man) 0.0 K/mm3 06/29/18 05:04 Monocytes # (Manual) 1.1 K/mm3 (0.0-0.8) H 06/29/18 05:04 Eosinophils # (Manual) 0.1 K/mm3 (0.0-0.4) 06/29/18 05:04 Basophils # (Manual) 0.0 K/mm3 (0.0-0.1) 06/29/18 05:04 Metamyelocytes # 0.0 K/mm3 06/29/18 05:04 Myelocytes # 0.0 K/mm3 06/29/18 05:04 Promyelocytes # 0.0 K/mm3 06/29/18 05:04 Blast Cells # 0.0 K/mm3 06/29/18 05:04 WBC Morphology Not Reportable 06/29/18 05:04 Hypersegmented Neuts Not Reportable 06/29/18 05:04 Hyposegmented Neuts Not Reportable 06/29/18 05:04 Hypogranular Neuts Not Reportable 06/29/18 05:04 Smudge Cells Not Reportable 06/29/18 05:04 Toxic Granulation Not Reportable 06/29/18 05:04 Toxic Vacuolation Not Reportable 06/29/18 05:04 Dohle Bodies Not Reportable 06/29/18 05:04 Pelger-Huet Anomaly Not Reportable 06/29/18 05:04 Micah Rods Not Reportable 06/29/18 05:04 Platelet Estimate Consistent w auto 06/29/18 05:04 Clumped Platelets Not Reportable 06/29/18 05:04 Plt Clumps, EDTA Not Reportable 06/29/18 05:04 Large Platelets Not Reportable 06/29/18 05:04 Giant Platelets Not Reportable 06/29/18 05:04 Platelet Satelliting Not Reportable 06/29/18 05:04 Plt Morphology Comment Not Reportable 06/29/18 05:04 RBC Morphology Not Reportable 06/29/18 05:04 Dimorphic RBCs Not Reportable 06/29/18 05:04 Polychromasia Not Reportable 06/29/18 05:04 Hypochromasia Not Reportable 06/29/18 05:04 Poikilocytosis Not Reportable 06/29/18 05:04 Anisocytosis Not Reportable 06/29/18 05:04 Microcytosis Not Reportable 06/29/18 05:04 Macrocytosis Not Reportable 06/29/18 05:04 Spherocytes Not Reportable 06/29/18 05:04 Pappenheimer Bodies Not Reportable 06/29/18 05:04 Sickle Cells Not Reportable 06/29/18 05:04 Target Cells Not Reportable 06/29/18 05:04 Tear Drop Cells Not Reportable 06/29/18 05:04 Ovalocytes Not Reportable 06/29/18 05:04 Helmet Cells Not Reportable 06/29/18 05:04 [place] Bodies Not Reportable 06/29/18 05:04 [place] Rings Not Reportable 06/29/18 05:04 [place] Cells Not Reportable 06/29/18 05:04 Bite Cells Not Reportable 06/29/18 05:04 Crenated Cell Not Reportable 06/29/18 05:04 Elliptocytes Not Reportable 06/29/18 05:04 Acanthocytes (Spur) Not Reportable 06/29/18 05:04 Rouleaux Not Reportable 06/29/18 05:04 Hemoglobin C Crystals Not Reportable 06/29/18 05:04 Schistocytes Not Reportable 06/29/18 05:04 Malaria parasites Not Reportable 06/29/18 05:04 Syed Bodies Not Reportable 06/29/18 05:04 Hem Pathologist Commnt No 06/29/18 05:04 PT 14.6 Sec. (12.2-14.9) 06/24/18 04:44 INR 1.10 (0.87-1.13) 06/24/18 04:44 Sodium 143 mmol/L (137-145) 06/29/18 05:04 Potassium 3.8 mmol/L (3.6-5.0) 06/29/18 05:04 Chloride 106.6 mmol/L (98-107) 06/29/18 05:04 Carbon Dioxide 24 mmol/L (22-30) 06/29/18 05:04 Anion Gap 16 mmol/L 06/29/18 05:04 BUN 4 mg/dL (7-17) L 06/29/18 05:04 Creatinine 0.5 mg/dL (0.7-1.2) L 06/29/18 05:04 Estimated GFR > 60 ml/min 06/29/18 05:04 BUN/Creatinine Ratio 8 % 06/29/18 05:04 Glucose 89 mg/dL (65-100) 06/29/18 05:04 Calcium 8.4 mg/dL (8.4-10.2) 06/29/18 05:04 Total Bilirubin 0.60 mg/dL (0.1-1.2) 06/29/18 05:04 AST 20 units/L (5-40) 06/29/18 05:04 ALT 48 units/L (7-56) 06/29/18 05:04 Alkaline Phosphatase 71 units/L (35-129) 06/29/18 05:04 Troponin T < 0.010 ng/mL (0.00-0.029) 06/21/18 13:59 C-Reactive Protein 24.10 mg/dL (0.00-1.30) H 06/29/18 05:04 Total Protein 6.0 g/dL (6.3-8.2) L 06/29/18 05:04 Albumin 2.7 g/dL (3.9-5) L 06/29/18 05:04 Albumin/Globulin Ratio 0.8 % 06/29/18 05:04 Lipase 30 units/L (13-60) 06/29/18 05:04 Nutrition/Malnutrition Assess - Dietary Evaluation Nutrition/Malnutrition Findings: Nutrition Notes Start: 06/29/18 10:41 Freq: Status: Active Protocol: Document 06/29/18 10:41 CT (Rec: 06/29/18 10:58 CT [id number]) Co-Sign 06/29/18 10:41 LP Nutrition Notes Need for Assessment generated from: LOS Initial or Follow up Assessment Other Pertinent Diagnosis Choleocystitis, chronic pain syndrome, obesity Current Diet Clear liquid Labs/Tests BUN 5 Cr 0.5 Pertinent Medications reviewed Height 5 ft 6 in Weight 112.8 kg [place] Body Weight (kg) 59.09 BMI 40.1 Weight Status Obese Subjective/Other Information RD screen for LOS. Pt states she is only able to sip liquids d/t pain and would like to try Ensure Clear. Percent of energy/protein needs met: 0%/0% Burn Absent Trauma Absent GI Symptoms Nausea #1 Nutrition Diagnosis Inadequate oral intake Etiology recent cholecystectomy As Evidenced by Signs and Symptoms pt reports inability to drink d/t pain Is patient on ventilator? No Is Patient Ambulatory and/or Out of Bed No REE-([facility] [place]-confined to bed) 2109.336 Kcal/Kg value to use for calculation 15 Approximate Energy Requirements Using 1692 kcal/Kg Additional Notes PRO: (adj BW 85. 9 KG) (1.0 - 1.2 g/kg) 86 - 103 g/ PRO fluid: 1 ml/kcal Nutrition Intervention Change Diet Order: Advance to full liquid when medically feasible Add Supplement/Snack (indicate name/kcal Ensure clear daily /protein ) Provides kCal: 240 Provides Protein (gm) 8 Goal #1 Diet Advancement Anticipated Discharge Needs: Cholecystectomy Follow-Up By: 07/01/18 Additional Comments F/U: diet advancement, PO and ONS intake and tolerance. Cholecystectomy education.
[2018-06-29] MEDS: PERCOCET 5/325 PO PRN ×2 (17:10→23:20)
[2018-06-30] MEDS: MORPHINE IV PRN ×2 (00:59→11:12)
[2018-06-30] MEDS: TORADOL IV SCH ×3 (01:46→14:00)
[2018-06-30] MEDS: NACL 0.9% 1000 ML 1,000 ML IV SCH (04:22)
[2018-06-30] MEDS: PERCOCET 5/325 PO PRN ×2 (05:02→13:49)
[2018-06-30 06:34] LABS: Hematocrit 36.3 % (30.3-42.9); Hemoglobin 11.9 gm/dl (10.1-14.3); Mean Corpuscular HGB Conc 33 % (30-34); Mean Corpuscular Volume 83 fl (79-97); Platelet Count 245 K/mm3 (140-440); Red Blood Count 4.39 M/mm3 (3.65-5.03); Red Cell Distribution Width 14.7 % (13.2-15.2)
[2018-06-30 07:38] LABS: Band Neutrophils # (Manual) 2.1 K/mm3; Eosinophils % (Manual) 0 % (0.0-4.3); Total Cells Counted 100
[2018-06-30 07:39] LABS: Anisocytosis 1+; Basophils % (Manual) 0 % (0.0-1.8)
[2018-06-30] MEDS: COLACE PO SCH (09:04)
[2018-06-30] MEDS: SODIUM CHLORIDE FLUSH SYRINGE 10 ML IV SCH (09:04)
[2018-06-30] MEDS: PROTONIX IV SCH (09:04)
[2018-06-30] MEDS: MIRALAX 3350 PO SCH (09:04)
--- NOTE | 2018-06-30 09:25 | Discharge Summary ---
<JUNIOR VASQUES - Last Filed: 06/30/18 13:02> Providers - Providers Date of Admission: 06/22/18 02:38 Attending physician: DEBBY DICKSON MD 06/21/18 22:32 Consult to Physician [CONS] Stat Comment: Consulting Provider: DUSTY PAYNE Physician Instructions: Reason For Exam: Biliary dilation, uncontrolled pain 06/21/18 23:27 Consult to Physician [CONS] Stat Comment: Consulting Provider: MARYBETH SALAZAR Physician Instructions: Reason For Exam: distal common bile duct obstruction Primary care physician: YONATAN LAUREN Hospitalization Condition: Stable Disposition: [id number] TO HOME OR SELFCARE Exam - Constitutional Vitals: Temp Pulse Resp BP Pulse Ox 98.7 F 92 H 20 154/79 98 06/30/18 05:15 06/30/18 05:15 06/30/18 05:15 06/30/18 05:15 06/30/18 05:15 Plan Activity: other (no heavy lifting, no driving if taking prescription pain meds) Diet: low fat Wound: open to air Additional Instructions: SEE PRINTED DISCHARGE INTRUCTIONS FROM DR. VASQUES'S OFFICE Follow up with: [facility] [Outside] - 3-5 Days [facility] [Outside] - 3-5 Days [facility] [Outside] - 3-5 Days JUNIOR VASQUES DO [Staff Physician] - 14 Days ROYCE TREJO MD [Staff Physician] - 10 Days Prescriptions: amLODIPine [Norvasc] 10 mg PO DAILY #30 tab Bisacodyl [Dulcolax] 10 mg PO DAILY PRN #20 tab PRN Reason: Constipation Gabapentin [Neurontin] 600 mg PO QPM #60 capsule Gabapentin [Neurontin] 300 mg PO QAM #30 capsule hydrALAZINE [Apresoline TAB] 25 mg PO Q8HR #90 tab Naproxen [Naprosyn] 500 mg PO BID #20 tablet oxyCODONE /ACETAMINOPHEN [Percocet 5/325 mg] 1 tab PO Q6H PRN #12 tablet PRN Reason: Pain, Moderate (4-6) Pantoprazole [Protonix TAB] 40 mg PO DAILY #30 tablet traMADol [Ultram 50 MG tab] 50 mg PO BID #20 tablet <DEBBY DICKSON - Last Filed: 07/02/18 20:04> Providers - Providers Date of Admission: 06/22/18 02:38 Attending physician: DEBBY DICKSON MD 06/21/18 22:32 Consult to Physician [CONS] Stat Comment: Consulting Provider: DUSTY PAYNE Physician Instructions: Reason For Exam: Biliary dilation, uncontrolled pain 06/21/18 23:27 Consult to Physician [CONS] Stat Comment: Consulting Provider: MARYBETH SALAZAR Physician Instructions: Reason For Exam: distal common bile duct obstruction Primary care physician: YONATAN LAUREN Hospitalization Reason for admission: cholelithiasis, biliary dilation, pancreatitis Pertinent studies: CT abdomen and pelvis 06/21 IMPRESSION: Abnormal biliary dilatation as described. Probable large uterine leiomyoma. FLUORO ERCP BILIARY DUCT FINDINGS: Fluoroscopy provided by radiology during ERCP. Multiple right upper quadrant fluoroscopic images suggest prominent/dilated common bile duct with caliber up to approximately 1 cm. No persistent filling defects suspected. Mild intrahepatic biliary dilatation centrally possible. The pancreatic duct was not injected CT ABDOMEN AND PELVIS IMPRESSION: A mild degree of fluid and fat stranding is identified in the right abdomen and surrounding the pancreas. Correlate for acute pancreatitis. Recent cholecystectomy was performed. A biliary leak is difficult to exclude. Consider HIDA scan if acute pancreatitis is ruled out. Small right pleural effusion. Uterine fibroid. Procedures: Laparascopy Cholecystectomy Hospital course: 53-year-old woman with a history of lumbar radiculopathy was seen in the emergency room for worsening back pain radiating to the left side without any associated symptoms, no bowel or bladder incontinence. Her workup was negative and she was given IV morphine for pain. After pain medication she developed epigastric pain which she describes as sharp pain and also involve her lower abdomen and associated with nausea. A CAT scan of the abdomen and pelvis was done which shows dilated colon bile duct, surgery was consulted and evaluated the patient and patient was found to have cholelithiasis and laparascopic cholecystectomy was done. For biliary dilation ERCP and sphincretomy was done. The patient abdominal pain didn't get better and work up was done and showed pancreatitis. Patient was managed appropriately and lipase level was trended down. Patient initially was on bowel rest and slowly started on clear liquid diet and advanced slowly. patient tolerated diet, patient's pain was relatively controlled and discharged home in a stable condition. HTN was controlled. Morbid obesity ; counselled about weight loss. Patient's questions and concerns were addressed at the bed side. Time spent for discharge: 32 minutes - Discharge Diagnoses (1) Pancreatitis, acute Status: Acute (2) Chronic cholecystitis Status: Acute (3) Lumbar radiculopathy, chronic Status: Acute Core Measure Documentation - Palliative Care Palliative Care/ Comfort Measures: Not Applicable - Core Measures Any of the following diagnoses?: none Exam - Physical Exam Narrative exam: Not in cardiopulmonary distress. The patient is obese. Vital signs as documented. Head exam is unremarkable. No scleral icterus . Neck is without jugular venous distension, thyromegaly, or carotid bruits. Lungs are clear to auscultation. Cardiac exam reveals regular rate and Rhythm. First and second heart sounds normal. No murmurs, rubs or gallops. Abdominal exam reveals normal bowel sounds, tenderness in the epigastric area, with no guarding or rigidity. Extremities are nonedematous and both femoral and pedal pulses are normal. ROLLER INSPECTOR AND MENDER: Alert and oriented 3. No focal weakness. - Constitutional Vitals: Temp Pulse Resp BP Pulse Ox 98.7 F 92 H 20 154/79 98 06/30/18 05:15 06/30/18 05:15 06/30/18 05:15 06/30/18 05:15 06/30/18 05:15 Plan Activity: no restrictions Weight Bearing Status: Full Weight Bearing Diet: advance as tolerated
--- NOTE | 2018-06-30 10:02 | Gastroenterology Progress Note ---
Addendum entered and electronically signed by ROYCE TREJO MD 06/30/18 15:13: - management as outlined below - will sign off, call if needed Original Note: Assessment and Plan 1.dilated CBD 2.abdominal pain (epigastric) 3.cholelithiasis -afebrile -WBC now WNL (10.2) -LFTs and lipase now WNL -CRP 23.50-trending down -s/p lap aleksandr with then benign ERCP with sphinterotomy -repeat CT showed pancreatitis -surgery following -clinically, patient reports feeling better with abd pain continuing to improve. No N/V. tolerating soft diet. -continue supportive care -patient okay to be d/c per GI standpoint with f/u in clinic in ~2 weeks -will sign off, please call if needed Subjective Date of service: 06/30/18 Principal diagnosis: dilated CBD Interval history: Patient sitting in bed eating grits this am w/o acute distress. Reports abd pain continuing to improve. No N/V. Tolerating diet. Objective - Constitutional Vitals: Temp Pulse Resp BP Pulse Ox 98.7 F 92 H 20 154/79 98 06/30/18 05:15 06/30/18 05:15 06/30/18 05:15 06/30/18 05:15 06/30/18 05:15 General appearance: no acute distress, obese - Respiratory Respiratory: bilateral: CTA - Cardiovascular Rhythm: regular Heart Sounds: Present: S1 & S2 - Gastrointestinal General gastrointestinal: Present: soft, tender (slight TTP in upper abdomen), non-distended, normal bowel sounds - Neurologic Neurological: alert and oriented x3 - Labs CBC & Chem 7: 06/30/18 06:15 06/29/18 05:04 Labs: Laboratory Results - last 24 hr 06/30/18 06/30/18 05:50 06:15 WBC 10.2 RBC 4.39 Hgb 11.9 Hct 36.3 MCV 83 MCH 27 L MCHC 33 RDW 14.7 Plt Count 245 Add Manual Diff Complete Total Counted 100 Seg Neuts % (Manual) 59.0 Band Neutrophils % 21.0 Lymphocytes % (Manual) 6.0 L Reactive Lymphs % (Man) 0 Monocytes % (Manual) 14.0 H Eosinophils % (Manual) 0 Basophils % (Manual) 0 Metamyelocytes % 0 Myelocytes % 0 Promyelocytes % 0 Blast Cells % 0 Nucleated RBC % Not Reportable Seg Neutrophils # Man 6.0 Band Neutrophils # 2.1 Lymphocytes # (Manual) 0.6 L Abs React Lymphs (Man) 0.0 Monocytes # (Manual) 1.4 H Eosinophils # (Manual) 0.0 Basophils # (Manual) 0.0 Metamyelocytes # 0.0 Myelocytes # 0.0 Promyelocytes # 0.0 Blast Cells # 0.0 WBC Morphology Not Reportable Hypersegmented Neuts Not Reportable Hyposegmented Neuts Not Reportable Hypogranular Neuts Not Reportable Smudge Cells Not Reportable Toxic Granulation Not Reportable Toxic Vacuolation Not Reportable Dohle Bodies Not Reportable Pelger-Huet Anomaly Not Reportable Micah Rods Not Reportable Platelet Estimate Appears normal Clumped Platelets Not Reportable Plt Clumps, EDTA Not Reportable Large Platelets Not Reportable Giant Platelets Not Reportable Platelet Satelliting Not Reportable Plt Morphology Comment Not Reportable RBC Morphology Not Reportable Dimorphic RBCs Not Reportable Polychromasia Not Reportable Hypochromasia Not Reportable Poikilocytosis Not Reportable Anisocytosis 1+ Microcytosis Not Reportable Macrocytosis Not Reportable Spherocytes Not Reportable Pappenheimer Bodies Not Reportable Sickle Cells Not Reportable Target Cells Not Reportable Tear Drop Cells Not Reportable Ovalocytes Not Reportable Helmet Cells Not Reportable [place] Bodies Not Reportable [place] Rings Not Reportable [place] Cells Not Reportable Bite Cells Not Reportable Crenated Cell Not Reportable Elliptocytes Not Reportable Acanthocytes (Spur) Not Reportable Rouleaux Not Reportable Hemoglobin C Crystals Not Reportable Schistocytes Not Reportable Malaria parasites Not Reportable Syed Bodies Not Reportable Hem Pathologist Commnt No C-Reactive Protein 23.50 H
[2018-06-30 13:34] VITALS: BP 153/76
[2018-07-01] MEDS ORDERED: PROTONIX PO SCH (10:00)
== END 2018-06-30 15:25 | disposition home or self-care (01) | DRG 417 ==
LOC: ED 11:02 → 4A 06-22 02:38 → 3A 06-25 12:19
PROVIDERS: ADMIT Internal Medicine; ATTEND Internal Medicine
PROC: 0FT44ZZ Resection of Gallbladder, Percutaneous Endoscopic Approach (ICD-10-PCS; principal; 2018-06-23)
PROC: BF131ZZ Fluoroscopy of Gallbladder and Bile Ducts using Low Osmolar Contrast (ICD-10-PCS; 2018-06-23)
PROC: 0F798ZZ Dilation of Common Bile Duct, Via Natural or Artificial Opening Endoscopic (ICD-10-PCS; 2018-06-24)
DX: K80.10 Calculus of gallbladder with chronic cholecystitis without obstruction (principal); K85.90 Acute pancreatitis without necrosis or infection, unspecified; Z68.41 Body mass index [BMI] 40.0-44.9, adult; M54.16 Radiculopathy, lumbar region; G89.4 Chronic pain syndrome; M19.90 Unspecified osteoarthritis, unspecified site; K80.20 Calculus of gallbladder without cholecystitis without obstruction; I10 Essential (primary) hypertension; K66.0 Peritoneal adhesions (postprocedural) (postinfection); K21.9 Gastro-esophageal reflux disease without esophagitis; E66.01 Morbid (severe) obesity due to excess calories; K59.00 Constipation, unspecified; K83.8 Other specified diseases of biliary tract; E87.5 Hyperkalemia; Z88.2 Allergy status to sulfonamides; Z88.8 Allergy status to other drugs, medicaments and biological substances; Z71.3 Dietary counseling and surveillance
CPT/HCPCS: 36415; 71260; 72131; 74018; 74177; 74181; 74300; 74328; 76700; 80053; 83690; 84484; 85007; 85025; 85027; 85610; 86140; 88304; 88312; 93005; 93010; G0378; C1726; C9113; J0360; J0500; J0690; J1100; J1170; J1610; J1885; J2250; J2270; J2405; J2704; J3010; J7030; Q9967

== ENCOUNTER 2018-11-08 10:06 | Outpatient (CLI) | payer OTHER ==
--- NOTE | 2018-11-08 13:37 | Mammography Report ---
BILATERAL DIGITAL SCREENING MAMMOGRAM with CAD: 11/08/18 10:06:00 CLINICAL: Routine screening. COMPARISON:None available. FINDINGS: The breasts are almost entirely fatty. No mass, architectural distortion or suspicious calcifications. IMPRESSION: No mammographic evidence of malignancy. BI-RADS CATEGORY: 1 - - Negative RECOMMENDATION: Routine mammographic screening in one year. COMMENT: Patient follow-up letters are generated by our [employer] application.
== END 2018-11-08 10:07 | disposition home or self-care (01) ==
LOC: MAMMO 10:06
PROVIDERS: ATTEND Family Medicine
DX: Z12.31 Encounter for screening mammogram for malignant neoplasm of breast (principal); I10 Essential (primary) hypertension; K21.9 Gastro-esophageal reflux disease without esophagitis; E66.9 Obesity, unspecified
CPT/HCPCS: 77067

== ENCOUNTER 2019-02-23 00:50 | Emergency (ER) | payer OTHER ==
[2019-02-23] MEDS ORDERED: HYDROmorphone 1 MG/1 ML INJ IV ONE ×2 (03:28→05:04)
[2019-02-23] MEDS ORDERED: FAMOTIDINE 20 MG/2 ML INJ IV ONE (03:28)
[2019-02-23] MEDS ORDERED: KETOROLAC 30 MG/1 ML INJ IV ONE (03:28)
[2019-02-23] MEDS ORDERED: dexAMETHasone 20 MG/5 ML VIAL IV ONE (03:28)
--- NOTE | 2019-02-23 04:43 | Emergency Department Report ---
ED Extremity Problem HPI - General Chief complaint: Extremity Injury, Lower Stated complaint: L LEG PAIN/NUMBNESS Time Seen by Provider: 02/23/19 03:06 Source: patient Mode of arrival: Ambulatory Limitations: No Limitations - History of Present Illness Initial comments: 53-year-old female with a past medical history of arthritis, hypertension, chronic back pain and sciatica presents to Hospital complains of worsening left buttock and thigh pain since 4 PM. No recent trauma reported. Patient has a history of bilateral sciatica and had a laminectomy in 2016. The last 3 months patient has been experiencing worsening left thigh and leg pain. She had a MRI of her lumbar spine performed last month and wasn't told she had any recurrent disc herniation. She is currently under pain management and taken hydrocodone 7.5/325 without improvement. As per [place] prescription drug monitoring site patient last filled 60 tablets on 02/17/2019. She is also taking Duloxetine for neuropathic pain and diclofenac for inflammation. As per previous medical record review patient was admitted here in May 2018 for left-sided pain with lumbar radiculopathy and found to have cholelithiasis with common bile duct dilatation treated with cholecystectomy and ERCP. patient denies any bowel or bladder incontinence or fevers. She has chronic numbness to her thigh and hamstring area which is unchanged. Patient received a steroid injection to her lumbar spine last week. She is due for a second injection February. Severity scale (0 -10): 10 - Related Data Previous Rx's Medication Instructions Recorded Last Taken Type Bisacodyl [Dulcolax] 10 mg PO DAILY PRN #20 tab 06/30/18 Unknown Rx Gabapentin [Neurontin] 300 mg PO QAM #30 capsule 06/30/18 Unknown Rx Gabapentin [Neurontin] 600 mg PO QPM #60 capsule 06/30/18 Unknown Rx Naproxen [Naprosyn] 500 mg PO BID #20 tablet 06/30/18 Unknown Rx Pantoprazole [Protonix TAB] 40 mg PO DAILY #30 tablet 06/30/18 Unknown Rx amLODIPine [Norvasc] 10 mg PO DAILY #30 tab 06/30/18 Unknown Rx hydrALAZINE [Apresoline TAB] 25 mg PO Q8HR #90 tab 06/30/18 Unknown Rx oxyCODONE /ACETAMINOPHEN [Percocet 1 tab PO Q6H PRN #12 tablet 06/30/18 Unknown Rx 5/325 mg] traMADol [Ultram 50 MG tab] 50 mg PO BID #20 tablet 06/30/18 Unknown Rx Famotidine [Pepcid] 20 mg PO BID #20 tablet 02/23/19 Unknown Rx methylPREDNISolone [Medrol 4MG 4 mg PO DAILY #1 tab.ds.pk 02/23/19 Unknown Rx DOSEPAK (21 tabs)] Allergies Allergy/AdvReac Type Severity Reaction Status Date / Time Sulfa (Sulfonamide Allergy Anaphylaxis Verified 06/21/18 11:07 Antibiotics) cyclobenzaprine HCl AdvReac Headache Verified 06/21/18 11:07 [From Flexeril] CLEAR PLASTIC TAPE AdvReac "PULLS MY Uncoded 06/23/18 10:13 SKIN OFF" ED Review of Systems ROS: Stated complaint: L LEG PAIN/NUMBNESS Other details as noted in HPI ED Past Medical Hx - Past Medical History Previous Medical History?: Yes Hx Hypertension: Yes Hx Heart Attack/AMI: No Hx Liver Disease: No Hx Renal Disease: No Hx Arthritis: Yes Hx Seizures: No Hx Asthma: No Additional medical history: Chronic Back Pain, Sciatica - Surgical History Past Surgical History?: Yes Hx Cholecystectomy: Yes Additional Surgical History: tubal ligation, lumbar laminectomry. LEFT THUMB SURGERY/TENDON REPAIR - Social History Smoking Status: Never Smoker Substance Use Type: None - Medications Home Medications: Home Medications Medication Instructions Recorded Confirmed Last Taken Type Bisacodyl [Dulcolax] 10 mg PO DAILY PRN #20 tab 06/30/18 Unknown Rx Gabapentin [Neurontin] 300 mg PO QAM #30 capsule 06/30/18 Unknown Rx Gabapentin [Neurontin] 600 mg PO QPM #60 capsule 06/30/18 Unknown Rx Naproxen [Naprosyn] 500 mg PO BID #20 tablet 06/30/18 Unknown Rx Pantoprazole [Protonix TAB] 40 mg PO DAILY #30 tablet 06/30/18 Unknown Rx amLODIPine [Norvasc] 10 mg PO DAILY #30 tab 06/30/18 Unknown Rx hydrALAZINE [Apresoline TAB] 25 mg PO Q8HR #90 tab 06/30/18 Unknown Rx oxyCODONE /ACETAMINOPHEN [Percocet 1 tab PO Q6H PRN #12 tablet 06/30/18 Unknown Rx 5/325 mg] traMADol [Ultram 50 MG tab] 50 mg PO BID #20 tablet 06/30/18 Unknown Rx Famotidine [Pepcid] 20 mg PO BID #20 tablet 02/23/19 Unknown Rx methylPREDNISolone [Medrol 4MG 4 mg PO DAILY #1 tab.ds.pk 02/23/19 Unknown Rx DOSEPAK (21 tabs)] ED Physical Exam - General Limitations: No Limitations - Other Other exam information: Gen.: No acute distress Head: Atraumatic Eyes: Normal appearance ENT: Moist mucous membranes Neck: Normal appearance, no posterior midline tenderness, no meningismus Chest: Clear to auscultation bilaterally Cardiovascular: Regular rate and rhythm Abdomen: Normal appearance, soft, nontender, no rebound or guarding, normal bowel sounds Back: Normal appearance, tenderness to left paraspinal muscle Extremity: Tenderness to left glute area as sciatic notch, tenderness to thigh and hamstring area. Complains of decreased sensation to posterior upper leg and medial thigh which is chronic. No leg asymmetry or edema Neuro: Alert and oriented 3, clear speech, initial weakness secondary to pain. After pain medication equal foot dorsiflexion 5/5 in intensity. Full range of motion Psychiatric: Appropriate Skin: No rash ED Course Vital Signs 02/23/19 01:08 Temperature 98.3 F Pulse Rate 74 Respiratory 18 Rate Blood Pressure 143/87 O2 Sat by Pulse 97 Oximetry - Reevaluation(s) Reevaluation #1: 02/23/19 05:06 pain improved with ed tx. also states some improvement in numbness. pt will receive addition dose of dilaudid for residual pain. ED Medical Decision Making - Medical Decision Making Patient presents with acute exacerbation of chronic lumbar radiculopathy. Positive improvement with ED treatment which include Dilaudid, Toradol, and Decadron. Patient is currently under pain management taken [place] 7.5 mg twice a day. Patient states she has an additional prescription that she has not yet filled. Patient informs she can take the medication 3 times a day or 4 times a day. I will add a methylprednisolone pack to her regimen for pain relief for radicular type of pain. She is encouraged to recontact her pain management doctor for additional treatment. H2-suleiman will be prescribed. Patient encouraged to take her anti-inflammatory medication with food. - Differential Diagnosis cauda equina, sciatica, lumbar radiculopathy Critical Care Time: No Critical care attestation.: If time is entered above; I have spent that time in minutes in the direct care of this critically ill patient, excluding procedure time. ED Disposition Clinical Impression: Lumbar radiculopathy, chronic, Acute exacerbation of chronic low back pain Disposition: TO HOME OR SELFCARE Is pt being admited?: No Does the pt Need Aspirin: No Condition: Stable Instructions: Lumbar Radiculopathy (ED), Chronic Back Pain (ED) Additional Instructions: Take the medication as prescribed. Follow-up with your doctor or with the doctor/clinic provided. Return if symptoms worsen as indicated by your discharge instructions. Take stool softeners as needed for constipation caused by narcotic medications. Prescriptions: methylPREDNISolone [Medrol 4MG DOSEPAK (21 tabs)] 4 mg PO DAILY #1 tab.ds.pk Famotidine [Pepcid] 20 mg PO BID #20 tablet Referrals: LEXI AWAN MD [Primary Care Provider] - 3-5 Days your, pain management doctor [Other] - 2-3 Days Forms: Work/School Release Form(ED) Time of Disposition: 05:32
[2019-02-23 05:41] VITALS: BP 152/75
== END 2019-02-23 05:43 | disposition home or self-care (01) ==
LOC: ED 00:50
DX: M54.16 Radiculopathy, lumbar region (principal); I10 Essential (primary) hypertension; M19.90 Unspecified osteoarthritis, unspecified site; M54.5 Low back pain; G89.29 Other chronic pain; Z90.49 Acquired absence of other specified parts of digestive tract; Z98.890 Other specified postprocedural states; Z98.51 Tubal ligation status; Z88.2 Allergy status to sulfonamides; Z88.1 Allergy status to other antibiotic agents; Z91.09 Other allergy status, other than to drugs and biological substances; Z79.899 Other long term (current) drug therapy
CPT/HCPCS: 96374; 96375; 96376; 99282; J1100; J1170; J1885

== ENCOUNTER 2020-10-29 09:42 | Outpatient (CLI) | payer OTHER ==
--- NOTE | 2020-10-29 13:43 | Mammography Report ---
DIGITAL SCREENING MAMMOGRAM WITH CAD, 10/29/2020 CLINICAL INFORMATION / INDICATION: Routine screening mammography. TECHNIQUE: Digital bilateral 2D mammography was obtained in the craniocaudal and mediolateral obliqu e projections. This examination was interpreted with the benefit of Computer-Aided Detection analysis . COMPARISON: Prior mammogram 11/08/2018 FINDINGS: Breast Density: The breasts are almost entirely fatty. No dominant mass, suspicious calcifications, or architectural distortion in either breast. There has been no significant change compared with the prior examinations. IMPRESSION: No mammographic evidence of malignancy. Follow up recommendation: Routine yearly BI-RADS Category 1: Negative. A "normal" or negative report should not discourage follow up or biopsy of a clinically significant f inding. A written summary of these findings will be mailed to the patient. The patient will be entered into a mammography reporting system which will generate a reminder letter for the patient's next appointmen t at the appropriate interval. The [employer] recommends yearly mammograms starting at age 40 and continuing as l yosi as a woman is in good health. Breast MRI is recommended for women with an approximate 20-25% or greater lifetime risk of breast cancer, including women with a strong family history of breast or ova becca cancer or who have been treated for Hodgkin's disease. Signer Name: Betina Bolivar MD Signed: 10/29/2020 1:38 PM Workstation Name: [email or web address]
--- NOTE | 2020-10-29 14:01 | XRay Report ---
Lumbar spine radiograph, 3 views. HISTORY: Back pain. COMPARISON: 06/22/2018. FINDINGS: Lumbar spinal alignment is preserved. Vertebral body heights are intact. No evidence of fra cture. Overall mild multilevel degenerative this disease, moderate at L5-S1. Mild lower lumbar facet arthropathy. SI joints are intact. Soft tissues are unremarkable. IMPRESSION: Multilevel lumbar spondylosis, greatest at L5-S1. No acute process. Signer Name: Juan C Fajardo MD Signed: 10/29/2020 1:56 PM Workstation Name: [id number]
--- NOTE | 2020-10-29 15:54 | XRay Report ---
LEFT TIBIA-FIBULA 4 VIEW(S) INDICATION / CLINICAL INFORMATION: CHRONIC PAIN COMPARISON: None available. FINDINGS: BONES / JOINT(S): No acute fracture or subluxation. No significant arthritis. SOFT TISSUES: No significant abnormality. ADDITIONAL FINDINGS: None. IMPRESSION: No acute osseous abnormality. Signer Name: Tre Ford MD Signed: 10/29/2020 3:50 PM Workstation Name: [id number]
== END 2020-10-29 09:43 | disposition home or self-care (01) ==
LOC: XRAY 09:42
PROVIDERS: ATTEND Internal Medicine
DX: Z12.31 Encounter for screening mammogram for malignant neoplasm of breast (principal); M47.817 Spondylosis without myelopathy or radiculopathy, lumbosacral region; M79.662 Pain in left lower leg
CPT/HCPCS: 72100; 77067